=== PATIENT | female | born 1980 | race Caucasian/White ===

== ENCOUNTER 2020-02-23 11:07 | Emergency (ER) | payer MEDICAID, SELFPAY ==
[2020-02-23 11:17] VITALS: BMI 19.2
[2020-02-23 11:21] VITALS: BP 124/87; PULSE 66; RESP 14; TEMP 35.7; O2SAT 98
[2020-02-23] MEDS: HYDROcodone-acetaminophen 5-325 mg Tablet 1 TAB PO (11:34)
--- NOTE | 2020-02-23 11:39 | ED_ITS ---
HPI - General Adult General: Chief complaint: Dental/Oral Stated complaint: mouth pain Time Seen by Provider: 02/23/20 11:22 History of Present Illness: HPI narrative: Patient has a large sore in her lower gum that is been recently treated for Candidus infection that has not improved. Patient says she is in a lot of pain is not getting better and she like it looked at. MD complaint: Sore in the mouth. Onset (ago): week(s) Location: mouth Severity: moderate Severity scale (1-10): 5 Quality: aching Pain Consistency: constant Relieving factors: none Associated symptoms: Reports no associated symptoms; Deny chest pain, dyspnea, headache(s), nausea, rash or vomiting Review of Systems Const: Denies: fever(s), chills or body aches Eyes: Denies: change in vision or blurry vision ENMT: Reports: other (Patient does wear dentures and she has an area in her mouth that is white and has an open sore that is not improved with medication recently prescribed by the urgent care clinic); Denies: throat pain or nasal congestion Card: Denies: chest pain or dyspnea on exertion Resp: Denies: dyspnea, productive cough or non-productive cough GI: Denies: abdominal pain, nausea or vomiting Musc: Denies: extremity pain Skin/Breast: Denies: rash Neuro: Denies: headache(s) Psych: Denies: anxiety or depression Castro/Lymph: Denies: easy bruising PFS ED PFSH: Social History (Updated 02/12/20 @ 12:10 by Jing Phillips LPN) Smoking and tobacco status: current every day smoker Female Reproductive History: Date of last menstrual period: 02/09/20 Physical Exam Const: COMMON NORMALS: no acute distress, average body habitus and patient oriented x3 HENMT: COMMON NORMALS: normocephalic HEAD & SCALP: normal to inspection and normocephalic FACE & SINUS: normal facial exam MOUTH: other (Patient has a lower gum to the center midline on the left and open areas almost looks like a clamshell for lack of better description that has white plaques inside of it and little necrotic tissue toward the back does not appear to be inflamed is tender to the touch has no drainage presently no significant lymphadenopathy noted anterior cervical) Eye: COMMON NORMALS: conjunctivae normal GENERAL EYE: appearance normal, both eyes and all related structures CONJUNCTIVA: Yes conjunctivae normal Neck/C-Spine: COMMON NORMALS: no JVD Chest: COMMONS NORMALS: normal inspection of the chest Resp: COMMON NORMALS: normal respiratory effort and clear to auscultation bilaterally AUSCULTATION: clear to auscultation bilaterally Cardio: COMMON NORMALS: no JVD Extremity: COMMON NORMALS: normal to inspection and full ROM Neuro: COMMON NORMALS: patient oriented x3 Course Vital Signs: Vital signs: Vital Signs Temperature 96.2 F L 02/23/20 11:21 Pulse Rate 66 02/23/20 11:21 Respiratory Rate 14 02/23/20 11:21 Blood Pressure 124/87 02/23/20 11:21 Pulse Oximetry 98 02/23/20 11:21 MDM - General Adult MDM Narrative: Medical decision making narrative: Spoke with Almaz at Dr. Newton's office to set up an appointment for 0 850 in the morning Discharge Plan Discharge Patient Disposition: Home Clinical Impression: Ulcer of gingiva Condition: Stable Prescriptions: New hydrocodone-acetaminophen 5-325 mg tablet 1 tab PO Q6H PRN (Reason: pain) Qty: 7 RF: 0 No Action nystatin 100,000 unit/mL suspension 6 ml PO QID 7 Days Qty: 168 RF: 0 Discharge Orders: Discharge Order (Routine); Ordered 02/23/20 Ordered By: Rush Katz Discharge Diet: Advance as tolerated Discharge Activity: Resume usual activity Activity Restrictions/Additional Instructions: Follow-up with Dr. Newton's office at 0 850 in the morning take medicine as prescribed continue nystatin Coding Level of Care Code ED Integrated Pest Management Technician for Chg Fwd Exam Comprehensive
[2020-02-23 11:49] VITALS: BP 126/88; PULSE 72; RESP 14; O2SAT 96
== END 2020-02-23 11:49 | disposition home or self-care (01) ==
PROVIDERS: Emergency Provider Nurse Practitioner Family
DX: K06.8 Other specified disorders of gingiva and edentulous alveolar ridge (principal); F17.210 Nicotine dependence, cigarettes, uncomplicated
CPT/HCPCS: 12345; 99281; 99283

== ENCOUNTER 2020-02-24 10:38 | Outpatient (CLI) | payer MEDICAID, SELFPAY ==
--- NOTE | 2020-02-24 10:46 | CT_ITS ---
WS: [id number] CT scan of the neck. Additional two-dimensional coronal and sagittal reconstruction was performed. Clinical Data: LOCALIZED SWELLING , MASS AND LUMP, NECK Comparison: None. DLP: 1738.[address] scans at [facility] use at least one of these dose optimization techniques: automat ed exposure control; mA and/or kV adjustment per patient size (includes targeted exams where dose is matched to clinical indication); or iterative reconstruction. Findings: No lymphadenopathy is noted. The salivary glands are unremarkable. There is no prevertebral soft tiss ue swelling. The larynx is symmetric. The thyroid gland shows normal enhancement. The floor of the mo uth and parapharyngeal spaces are normal. The salivary glands show no abnormalities The oral cavity i s unremarkable. The carotid arteries bifurcate normally. The cervical spine is unremarkable. The lung apices show no abnormalities. No erosion of the skull or skull base is seen. CT/CT neck w con* [id number] Impression: Negative CT scan of the neck.
[2020-02-24] MEDS: iohexol 300 mg/mL 100 mL Btl IV (11:49)
== END 2020-02-24 10:39 | disposition home or self-care (01) ==
LOC: RADWPI 10:42
PROVIDERS: Visit Provider Specialist
DX: R22.1 Localized swelling, mass and lump, neck (principal)
CPT/HCPCS: 70491; Q9967

== ENCOUNTER 2020-04-17 12:59 | Outpatient (CLI) | payer OTHER, MEDICAID, SELFPAY ==
--- NOTE | 2020-04-17 16:35 | ONC CON_ITS ---
Dr. Vilchis New Patient Note Patient: Tiffanie Juárez Unit #: [id number]: 1980 Dicatated By: Anna Marie Vilchis M.D.Date of Visit: Apr 17, 2020 Onc MED New Patient/Consult Referring Physician: Dr. Adrian Arteaga M.D. History of Present Illness: Ms. Tiffanie Juárez, is a 39-year-old female with a longstanding history of smoking e.g. more than 25 years recently noted sore in her mouth, it was painful causing problem with swallowing because of pain but denies any melena or hematochezia hemoptysis or hematemesis, denies any bleeding from mouth or history of infection in her mouth or gum., Patient was referred to ENT Dr. 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 And CT PET scan was ordered which was done on March 25, 2020 which showed increased activity in the floor of mouth otherwise negative for local and distant metastatic disease. Patient was referred to ENT in [place], as per patient radical neck dissection is under consideration and scheduled for May 10, 2020 and patient is also scheduled to see plastic surgery on April 26, 2020. Patient is complaining of discomfort around her gumline and problem with swallowing due to floor of the mouth lesion and taken hydrocodone, which is helping her some. Otherwise denies any fever or chills, denies any weight loss, denies any voice changes. Patient smoke about pack a day, and drinks occasionally. Past Medical History: Ms. Juárez's medical history is unremarkable. Past Surgical History: Ms. Juárez's surgical history is unremarkable. Medications: Flora 1 Tablet (of 5-325 mg) Oral q 6 hours PRN, Turmeric 1 Capsule Oral daily Allergies: No Known Allergies. Social History: Ms. Juárez is . She is a daily smoker who has smoked 1.0 pack/day for 26 years. She has no history of drinking. She has indicated exposure to the following products: cigarettes. Family History: pt states she doesn't know any family medical history. Review Of Symptoms: Review of Systems is not available for this patient. Vital Signs: Performed on Apr 17, 2020 16:02: 69.00 in, 143.6 lbs, 98.6 F, 68, 20, 116/63 mm(hg), 96 %, 10, Performed on Apr 17, 2020 16:02: 21.206 kg/m2, and Performed on Apr 17, 2020 13:47: 1.79 sq.m. Performance Status: 0 - Fully active, able to carry on all predisease activities without restrictions. (ECOG) Physical Examination: ENMT - No thrush and there is a large ulcerated lesion of the left floor of the mouth extending from midline posteriorly, Respiratory - Lungs are clear to auscultation, Cardiovascular - Regular rate and rhythm of heart, Abdomen - Soft, bowel sounds present, Extremities - No visible edema. Lab/Imaging: Most recent lab results are not available for this patient. Impression: Well-differentiated squamous cell carcinoma extending to the base and lateral edges per left floor of the mouth lesion biopsy done on February 24, 2020 CT PET scan done on March 25, 2020 showed floor of the mouth activity and is negative for local or distant metastatic disease. History of' heavy smoking, still active Plan: Discussed with patient regarding his disease status and treatment options, patient is being considered for radical neck dissection and reconstruction as per patient she is scheduled for radical neck dissection on May 10, 2020 and she is also seen plastic surgery on April 26, 2020, patient was advised that standard of care for localized lesion is surgery and if postop pathology report shows lymph node involvement with extranodal extension or positive surgical margins, those patients are usually recommended adjuvant radiation therapy plus minus chemo. Patient will see radiation oncology today and then she was wished good luck for radical neck dissection and then return to clinic 2 weeks after surgery for evaluation. Patient was advised to quit smoking and was offered any assistance she may need. And she was also advised to maintain good oral hygiene and continue with her pain medication on as-needed basis. Signed By: Anna Marie Vilchis M.D. <<Signature on File>>
--- NOTE | 2020-04-20 12:45 | N.ONRAD NP_ITS ---
Radiation Oncology New Patient Visit Patient: Tiffanie Juárez MR#: [id number] : 1980 Age: 39 Sex: Female Dictated by: Dr. Alex Pelayo Date of Service: 04/17/2020 Referring Physician(s) : Dr. Adrian Arteaga Diagnosis: Two oral cavity primaries, both staged as [id number], one in the left floor of mouth and the other in the left alveolus. Chief Complaint / History 1 located in the left floor of mouth Present Illness: The patient is a 39-year-old female with a 98-[id number]-imsw history of smoking (currently smoking) and an edentulous oral cavity who noted an oral cavity sore which impaired her ability to wear dentures in November 2019. The patient procrastinated seeking medical evaluation, and upon ultimately seeking medical evaluation, a left floor of mouth biopsy ([facility] 02/24/2020) revealed well differentiated invasive squamous cell carcinoma. The patient was then referred by Dr. Arteaga to Dr. Quezada. A subsequent PET/CT (03/25/2020) revealed FDG avidity within the anterior left floor of mouth, but there was no submental, submandibular, or jugulodigastric lymph nodes present to suggest local lymph node spread. The patient is planned to undergo surgical resection to consist of composite resection of floor of mouth, tongue and marginal mandibulectomy, bilateral modified radical neck dissection, tracheostomy, percutaneous endoscopic gastrostomy tube placement, and reconstruction consisting of a radial forearm free flap. The patient is seen in consultation today, and aside from the irritation in her oral cavity, the patient has no complaints. Current Medications: [place], turmeric. Allergies: No Known Allergies Medical History: No history of collagen vascular disease. No previous radiation therapy. Family History: pt states she doesn't know any family medical history Social History: Last screened on 04/17/2020 - Current every day smoker 1.0 pack/day for 26 years (26 pack years). Last screened on 04/05/2020 - Never drank. Patient indicated use of the following products: cigarettes. Current Complaints / Review of Systems: Constitutional - Complains of mild fatigue. Denies lack of appetite, fever, night sweats, rigors / chills and change in weight. Eyes - Denies blurred vision and double vision. ENMT - Complains of ear pain on the left side occasionally. Complains of mild mouth dryness. Complains of stomatitis. Denies altered taste. Having stinging pain on the left lower jaw with eating. Neck - Complains of swelling of the neck. Denies neck pain and decreased range of motion. Integumentary - Denies rash. Breasts - Denies pain. Cardiovascular - Denies arrhythmias, chest pain and edema. Respiratory - Complains of cough. Complains of chronic dyspnea. Denies hemoptysis, hiccoughs and wheezing. Gastrointestinal - Denies abdominal pain, constipation, diarrhea, heartburn / dyspepsia, nausea and vomiting. Genitourinary (F) - Denies dysuria, frequency, urgency, vaginal discharge / bleeding and vaginal spotting. Musculoskeletal - Denies joint pain and muscle weakness. Neurologic - Denies dizziness, abnormal gait and headaches. Endocrine - Denies diabetes and thyroid disease. Hematologic/Lymphatic - Complains of tender or enlarged lymph nodes on the left side of the neck.. Vital Signs: Performed on 04/17/2020 1:47 PM Height - 69.00 in, Weight - 143.6 lbs (high), BSA - 1.79 sq.m, BMI - 21.21, Temperature - 98.6 f, Pulse - 68 /min, Respiration - 20 /min, O2 Sat - 96 %, Pain - 8 and BP - 116/ 63 mm(hg)(/low). Physical Exam: GENERAL:??? The patient is alert, and in no acute distress. HEENT:??? Head is normocephalic. Face is symmetric. External ocular movements are intact. Sclera and conjunctivae are non erythematous. NECK:??? Trachea is midline.??? Thyroid is not enlarged by palpation.??? LYMPH NODES:??? There is no cervical or supraclavicular adenopathy bilaterally. However, the patient does have a palpable swollen left submandibular gland. LUNGS:??? Clear to auscultation bilaterally. Respiratory movement is unlabored. HEART:??? Regular rate and rhythm. EXTREMITIES:??? No deformities. NEUROLOGIC:??? Gait and station are normal.??? The patient is well coordinated and strength is equal bilaterally. STAFFING RECRUITER:??? Cranial nerves II-XII are intact and without focal deficits.??? Psych: Affect is normal. Skin: Cursory review of the skin reveals no obvious lesions concerning for malignancy. Oral Cavity: There is an ulcerated lesion measuring approximately 2 x 1 cm predominantly centered in the right floor of mouth involving the right sublingual fold, lingual frenulum, ventral aspect of the midline tongue (right greater than left), with 0.5 cm involvement of the left sublingual fold. The left submandibular duct appears to be occluded/involved. In addition, there is an abutting exophytic lesion measuring approximately 3 x 2 cm in the left anterior mandibular alveolus. The patient's oral cavity is edentulous Imaging: See HPI -personally reviewed by me. Impression: The patient is a 39-year-old female with two oral cavity primaries, both staged as [id number], one in the left floor of mouth and the other in the left alveolus. The patient is scheduled to undergo composite resection of floor of mouth, tongue and marginal mandibulectomy, bilateral modified radical neck dissection, tracheostomy, percutaneous endoscopic gastrostomy tube placement, and reconstruction consisting of a radial forearm free flap. It was explained to the patient that she would most likely require postoperative radiation therapy plus or minus concurrent chemotherapy (if a postsurgical positive margin or extracapsular extension was noted on final pathology). A considerable amount time was spent discussing acute and late side effects associated with radiation therapy. Plan: The patient was recommended to follow with radiation oncology 2 weeks status post surgical resection for pathology review and final recommendations for or against adjuvant radiation therapy (60-66 Gy/30-33fx), +/- concurrent chemotherapy as deemed appropriate after pathologic review. Signed by: 04/20/2020 12:44:02 PM <<Signature on File>> Time spent with patient: CPT Code: CPT Code:
== END 2020-04-17 13:00 | disposition home or self-care (01) ==
LOC: ONCMED 13:04
PROVIDERS: Absent Provider Radiology Radiation Oncology; PCP Family Medicine Adult Medicine; Referring Provider Specialist; Visit Provider Internal Medicine Hematology & Oncology
DX: C04.8 Malignant neoplasm of overlapping sites of floor of mouth (principal); F17.210 Nicotine dependence, cigarettes, uncomplicated; G89.3 Neoplasm related pain (acute) (chronic); Z79.891 Long term (current) use of opiate analgesic
CPT/HCPCS: 99203; 99215

== ENCOUNTER 2020-05-21 07:00 | Emergency (ER) | payer OTHER, MEDICAID, SELFPAY ==
[2020-05-21 07:08] VITALS: BP 127/73; PULSE 84; RESP 16; TEMP 36.8; O2SAT 96; BMI 21.4
--- NOTE | 2020-05-21 07:28 | ED_ITS ---
HPI - General Adult General: Chief complaint: General Medical Stated complaint: throat pain due to post surgery Time Seen by Provider: 05/21/20 07:11 History of Present Illness: HPI narrative: 39-year-old female patient presents to the emergency department with neck pain, redness, swelling that started yesterday. 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 Neck dissection with skin grafting completed 05/10/2020 at [facility] by Dr. Kirby - reports redness swelling with increased pain around the surgical incisions anterior neck, reports some swelling around the trach site. Denies change of drainage from the trach area. Denies fever chills, denies nausea vomiting. Reports contacted her surgeon who advised her to come to the emergency department for evaluation. Onset (ago): day(s) (1) Location: neck Severity: moderate Quality: aching and dull Pain Consistency: intermittent Relieving factors: none Exacerbating factors: none Associated symptoms: Reports malaise; Deny chest pain, dyspnea, headache(s), nausea, rash, palpitations or vomiting Treatments prior to arrival: none Review of Systems General: Reports: 10 or more systems reviewed and unremarkable except in HPI and below Const: Reports: fatigue and malaise; Denies: fever(s) or chills Eyes: Denies: blurry vision or eye redness ENMT: Reports: mouth pain, swelling of lips/tongue and oral sores; Denies: throat pain, dental pain or disequilibrium Card: Denies: chest pain, palpitations, irregular heart rhythm or swelling of feet/ankles Resp: Reports: productive cough (to trach site); Denies: dyspnea, non-productive cough or wheezing GI: Denies: abdominal pain, nausea or vomiting : Denies: difficulty voiding or dysuria Musc: Denies: neck pain, back pain or joint pain Skin/Breast: Reports: erythema (anterior neck surrounding incision sites) and skin tenderness; Denies: rash or pruritus Neuro: Denies: headache(s), weakness in extremities or behavioral changes Psych: Reports: anxiety and depression (r/t recent cancer diagnosis) Castro/Lymph: Denies: easy bruising PFSH ED PFSH: Medical History (Updated 05/21/20 @ 10:07 by ARELI Self) Squamous cell carcinoma of oral cavity Social History (Updated 04/11/20 @ 10:11 by KIEL Montero Smoking and tobacco status: current every day smoker cigarettes Packs smoked per day: 0.5 Second hand smoke exposure: Yes Alcohol intake: current Alcohol intake frequency: holidays/special occasions only Female Reproductive History: Date of last menstrual period: 05/08/20 Physical Exam Const: COMMON NORMALS: no acute distress, patient oriented x3, alert and well nourished GENERAL APPEARANCE: cooperative, comfortable, well kempt and well hydrated NUTRITIONAL APPEARANCE: thin ORIENTATION/CONSCIOUSNESS: Yes awake, Yes oriented to person, Yes oriented to place and Yes oriented to time HENMT: COMMON NORMALS: normocephalic, atraumatic, EAC's normal, Normal external nose present, Normal nasal mucous membranes and turbinates present and moist oral mucous membranes HEAD & SCALP: normal to inspection, normocephalic and atraumatic FACE & SINUS: sinuses nontender NOSE: Normal external nose present and Normal nasal mucous membranes and turbinates present EXTERNAL AUDITORY CANAL: EAC's normal MOUTH: mouth trauma (from recent surgery), Abnormal oral and palatal mucosa present and tongue abnormal (pale discoloration, tongue immobile, reports tacked to floor of mouth) Eye: COMMON NORMALS: Equal, round and reactive pupils present and EOMs intact bilaterally GENERAL EYE: appearance normal, both eyes and all related structures PUPIL: Yes Equal, round and reactive pupils present Neck/C-Spine: COMMON NORMALS: full ROM and no lymphadenopathy GENERAL: Yes normal visual inspection, Yes trachea midline, Yes anterior neck swelling (with erythema and edema, submental) and Yes tracheostomy present (with purulent sputum with cough, no erythema to surrounding skin) CERVICAL SPINE: Yes cervical ROM normal and No Cervical spine tenderness Lymph: LYMPHATIC: no lymphadenopathy noted Chest: COMMONS NORMALS: normal inspection of the chest and normal palpation of entire chest wall Resp: COMMON NORMALS: normal respiratory effort and clear to auscultation bilaterally EFFORT & INSPECTION: Yes able to speak in complete sentences AUSCULTATION: clear to auscultation bilaterally Cardio: COMMON NORMALS: regular rhythm, S1 normal heart sound present, S2 normal heart sound present and Peripheral pulses 2+ throughout RHYTHM: regular rhythm HEART SOUNDS: S1 normal heart sound present and S2 normal heart sound present PERIPHERAL PULSES: Peripheral pulses 2+ throughout GI: COMMON NORMALS: Normal to inspection, nondistended, normoactive bowel sounds present, Soft to palpation and non-tender INSPECTION: Yes normal to inspection and Yes other (PEG to LUQ, no erythema/ecchymosis) PALPATION: Yes Soft to palpation : COMMON NORMALS: Yes no CVA tenderness BLADDER/KIDNEY EXAM: Yes no CVA tenderness Back/Pelvis: COMMON NORMALS: no CVA tenderness, thoracic and lumbar spine normal to inspection and no thoracic nor lumbar tenderness Extremity: COMMON NORMALS: normal to inspection and capillary refill normal Neuro: COMMON NORMALS: patient oriented x3 and no focal motor deficits SENSORIUM/ORIENTATION: Yes alert, Yes oriented to person, Yes oriented to place and Yes oriented to time Psych: COMMON NORMALS: mental status grossly normal, Normal thought process present and cooperative APPEARANCE: Yes well kempt ACTIVITY/MOTOR BEHAVIOR: Yes appropriate eye contact THOUGHT PROCESS: Normal thought process present Skin: COMMON NORMALS: no rashes or lesions noted and turgor normal GENERAL SKIN EXAM: no rashes or lesions noted and turgor normal LESIONS: no lesions RASHES: no rashes WOUNDS: Yes surgical site Details: size (large, anterior, rt and left anterior neck, horizontal incision, surrounding erythema and ecchymosis noted.), drainage (None), margins (Approximated) and sutures (Intact) OTHER: Surgical incision to the left forearm, clean dry and intact without erythema, negative ecchymosis Course ED course: 39-year-old female patient presents to the emergency department status post neck dissection with skin grafting due to squamous cell carcinoma 05/10/2020 at [facility] by Dr. Kirby, ENT; she presents with concerning findings of increased redness and swelling surrounding the incision site of the anterior neck. White blood count negative for leukocytosis, CT scan of the neck revealed 6 cm loculated fluid collection in the right anterior neck with enhancing rim/consistent with questionable abscess cavity. Discussion with Dr. Kirby after films were purged to [facility]. Advised no need for antibiotics at this time, will reevaluate patient in the morning at 10 AM in his office. Discussion with the patient concerning my conversation as well as findings of CT scan and serology here in the ED. Questions were answered, concerns were discussed, agrees for follow-up tomorrow as recommended. Advised to return the emergency department if she develops worsening concerning symptoms. She verbalized understanding and agrees. Consultations: Consultation #1: Dr Kirby, ENT at [place], [place], CHRISTINA Cano ENT -CT scans were purged to [facility] with review by Dr. Kirby, reports no emergent findings at this time to transfer patient to [facility]. Advised to follow-up with patient tomorrow at 10 AM in his office. Serology results discussed from today's findings. Negative leukocytosis, negative fever chills. Discussion of Zosyn administered IV here in the ED, advised no p.o. antibiotics at this time as infection may not be evident without fever or leukocytosis. I discussed with Dr. Kirby my concern of erythema to the neck, negative drainage appreciated. Reports will wait till tomorrow to determine antibiotic coverage. Vital Signs: Vital signs: Vital Signs Temperature 98.2 F 05/21/20 07:08 Pulse Rate 78 05/21/20 10:18 Respiratory Rate 18 05/21/20 10:18 Blood Pressure 107/56 05/21/20 10:18 Pulse Oximetry 94 05/21/20 10:18 MDM - General Adult Lab Data: Labs: Lab Results 05/21/20 05/21/20 05/21/20 Range/Units 07:55 07:55 08:35 WBC Cancelled Corrected WBC Cancelled RBC Cancelled Hgb Cancelled Hct Cancelled MCV Cancelled MCH Cancelled MCHC Cancelled RDW Cancelled Plt Count Cancelled MPV Cancelled Gran % Cancelled Neut % (Auto) Cancelled Lymph % (Auto) Cancelled [place] % (Auto) Cancelled Eos % (Auto) Cancelled Baso % (Auto) Cancelled Neut # (Auto) Cancelled Lymph # (Auto) Cancelled [place] # (Auto) Cancelled Eos # (Auto) Cancelled Baso # (Auto) Cancelled Absolute Gran (aut o) Cancelled Nucleated RBC % (a uto) Cancelled Nucleated RBCs # Cancelled Sodium Cancelled 135 L Potassium Cancelled 4.2 Chloride Cancelled 100 Carbon Dioxide Cancelled 27 Anion Gap Cancelled 12.2 BUN Cancelled 15 Creatinine Cancelled 0.4 L GFR Calculation Cancelled 177.7 H Glucose Cancelled 88 Calculated Osmolal ity Cancelled 280 L Calcium Cancelled 8.5 Total Bilirubin Cancelled 0.2 AST Cancelled 14 ALT Cancelled 13 Alkaline Phosphata se Cancelled 68 Total Protein Cancelled 6.2 L Albumin Cancelled 3.1 L Globulin Cancelled 3.1 05/21/20 Range/Units 08:35 WBC 8.6 Corrected WBC RBC 4.10 Hgb 12.6 Hct 39.1 MCV 95.4 MCH 30.7 MCHC 32.2 RDW 11.9 L Plt Count 465 H MPV 9.5 Gran % Neut % (Auto) 59.4 Lymph % (Auto) 20.9 [place] % (Auto) 12.3 Eos % (Auto) 5.6 Baso % (Auto) 1.2 Neut # (Auto) 5.12 Lymph # (Auto) 1.8 [place] # (Auto) 1.1 H Eos # (Auto) 0.5 Baso # (Auto) 0.1 Absolute Gran (aut o) Nucleated RBC % (a uto) 0 Nucleated RBCs # 0.0 Sodium Potassium Chloride Carbon Dioxide Anion Gap BUN Creatinine GFR Calculation Glucose Calculated Osmolal ity Calcium Total Bilirubin AST ALT Alkaline Phosphata se Total Protein Albumin Globulin Imaging Data^: CT Head: Radiologist's impression: [place] [address] CT Scan Report Signed Patient: Tiffanie Juárez Unit #: [id number] : 1980 Age/Sex: 39 / F ADM Date: 05/21/20 Loc: ER Room/Bed: Attending Dr: Ordering Provider/Ordering MD: Lisa Arevalo Date of Service: 05/21/20 Procedure(s): CT neck w con* [id number] Accession Number(s): [id number] Report Number: [id number] PROCEDURE INFORMATION: Exam: CT Neck With Contrast Exam date and time: 05/21/2020 7:40 AM Age: 39 years old Clinical indication: Pain and condition or disease; Throat; Neck pain; Prior surgery; Surgery date: <1 month; Surgery type: Mouth/neck for cancer; Additional info: Neck swelling, ? abscess, S/P trach/neck dissection TECHNIQUE: Imaging protocol: Computed tomography images of the neck with intravenous contrast. Radiation optimization: All CT scans at this facility use at least one of these dose optimization techniques: automated exposure control; mA and/or kV adjustment per patient size (includes targeted exams where dose is matched to clinical indication); or iterative reconstruction. Contrast material: OMNIPAQUE 300; Contrast volume: 95 ml; Contrast route: INTRAVENOUS (IV); COMPARISON: CT neck w con* [id number] 02/24/2020 11:37 AM RADIATION DOSE METRICS: Total DLP (mGy-cm): 593.06 FINDINGS: Paranasal sinuses: There is mild mucosal thickening in the sphenoid sinus. Nasopharynx: Unremarkable. Oropharynx: Unremarkable. No significant tonsillar enlargement. Hypopharynx: Unremarkable. Larynx: Unremarkable. Normal epiglottis. Retropharyngeal space: Unremarkable. Submandibular/Parotid glands: Normal. Glands are normal in size. Thyroid: The thyroid gland is unremarkable.. Lymph nodes: Unremarkable. No lymphadenopathy. Trachea: A tracheostomy is present. There is no constriction of the airway. Lungs: Unremarkable as visualized. Bones/joints: Unremarkable. No acute fracture. Soft tissues: The patient has undergone extensive neck surgery with numerous clips especially on the right side. There is diffuse subcutaneous edema bilaterally extending from the level of the mandible down to the level of the thyroid gland. This is more prominent on the right side. This may be due to a extensive cellulitis. There are multiple bubbles of subcutaneous air especially on the right side and in the submandibular region. There is a 6 cm loculated fluid collection that extends from the inferior aspect of the mandible down along the right side of the anterior neck anterior to the right sternocleidomastoid muscle. This has an enhancing rim and contains a few bubbles of air. This may represent abscess cavity. CT/CT neck w con* [id number] IMPRESSION: 1. The patient has undergone recent extensive neck surgery specially on the right side. 2. Diffuse subcutaneous edema predominantly on the right side consistent with a cellulitis. 3. There is a 6 cm loculated fluid collection in the right anterior neck with enhancing rim and containing a few bubbles of air which is consistent with an abscess cavity. Radiation Dose CTDIVOL = (mGy): DLP = 593.06 (mGy-cm) Dictated By: Stevan Schulte Signed By: Stevan Schulte Signed Date/Time: 05/21/20836 DD/ 5 Discharge Plan Discharge Patient Disposition: Home Clinical Impression: Pain at surgical incision, Abscess, neck Condition: Stable Prescriptions: No Action Docu 50 mg/5 mL liquid 10 ml PO BID RF: 0 hydrocodone-acetaminophen 5-325 mg Tablet 1 tab PO Q6H PRN (Reason: Pain) RF: 0 famotidine 20 mg tablet 20 mg feeding tube BID RF: 0 lidocaine HCl 4 % Solution 10 ml Transtracheal QID RF: 0 Discharge Orders: Discharge Order (Routine); Ordered 05/21/20 Ordered By: Lisa Arevalo Referrals: Alex Ca MD [Primary Care Provider] - Discharge Diet: Usual diet and Resume prior tube feeds Discharge Activity: Limit activity as instructed Patient Instructions: Surgical Site Infections (ED), Abscess (ED) Activity Restrictions/Additional Instructions: Follow-up with Dr. Kirby tomorrow at 10 AM without fail, decision regarding antibiotic therapy will be discussed at that time. Return to the emergency department if you develop difficulty breathing, fever, chills, drainage from the surgical incision Continue therapy and care as per discharge instructions from surgery Continue pain medication as directed by Dr. 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
[2020-05-21] MEDS: iohexol 300 mg/mL 100 mL Btl IV (08:03)
[2020-05-21 08:07] VITALS: RESP 18; O2SAT 98
[2020-05-21] MEDS: morphine 4 mg/mL SDV 1 mL IVP ×2 (08:07→08:54)
[2020-05-21] MEDS: ondansetron 2 mg/ML SDV 2 mL 4 MG IVP (08:07)
[2020-05-21] MEDS: piperacillin-tazobactam 3.375 GM in sodium chloride 0.9% (plus) 50 ML IV (08:52)
[2020-05-21 08:54] VITALS: RESP 18; O2SAT 96
[2020-05-21] MEDS: sodium chloride 0.9% 1,000 ML 125 ML IV (08:54)
[2020-05-21 09:21] LABS: Alanine Aminotransferase 13 U/L (0-33); Albumin Level 3.1 g/dL (3.5-5.2); Alkaline Phosphatase 68 IU/L (35-105); Anion Gap 12.2 (5-19); Aspartate Amino Transferase 14 U/L (0-32); Blood Urea Nitrogen 15 mg/dL (6-20); Calcium 8.5 mg/dL (8.5-10.5); Carbon Dioxide 27 mmol/L (22-29); Chloride 100 mmol/L (98-107); Globulin 3.1 g/dL (1.3-4.6); Glomerular Filtration Rate 177.7 mL/min (90-130); Glucose 88 mg/dL (65-115); Osmolality Calculated 280 mOsm/kg (285-295); Potassium 4.2 mmol/L (3.5-5.1); Sodium 135 mmol/L (136-145); Total Bilirubin 0.2 mg/dL (0.15-1.2); Total Protein 6.2 g/dL (6.6-8.7)
[2020-05-21 09:22] LABS: Basophils # 0.1 10^3/uL (0.0-0.1); Basophils % 1.2 %; Eosinophils # 0.5 10^3/uL (0.0-0.8); Eosinophils % 5.6 %; Hematocrit 39.1 % (37.0-47.0); Hemoglobin 12.6 g/dL (11.5-15.3); Lymphocytes # 1.8 10^3/uL (0.8-4.8); Lymphocytes % 20.9 %; Mean Corpuscular HGB Conc 32.2 g/dL (30.0-36.0); Mean Corpuscular Hemoglobin 30.7 pg (28.0-34.0); Mean Corpuscular Volume 95.4 fL (81-99); Mean Platelet Volume 9.5 fL (7.4-10.4); Monocytes # 1.1 10^3/uL (0.2-0.9); Monocytes % 12.3 %; Neutrophils # 5.12 10^3/uL (1.8-7.7); Neutrophils % 59.4 %; Nucleated Red Blood Cells % 0 %; Platelet Count 465 10^3/cmm (130-400); Red Cell Distribution Width 11.9 % (12.1-15.1); White Blood Count 8.6 10^3/uL (4.0-10.0)
[2020-05-21 10:18] VITALS: BP 107/56; PULSE 78; RESP 18; O2SAT 94
[2020-05-21] MEDS: HYDROcodone-APAP 7.5-325 mg/15 mL UDC PO (10:23)
== END 2020-05-21 10:23 | disposition home or self-care (01) ==
PROVIDERS: Emergency Provider Nurse Practitioner Family; PCP Family Medicine Adult Medicine
DX: L02.11 Cutaneous abscess of neck (principal); T81.89XA Other complications of procedures, not elsewhere classified, initial encounter; F17.210 Nicotine dependence, cigarettes, uncomplicated
CPT/HCPCS: 12345; 70491; 80053; 85025; 87040; 96365; 96375; 96376; 99282; 99283; J2270; J2405; J2543; J7030; Q9967

== ENCOUNTER 2020-06-21 14:23 | Outpatient (CLI) | payer OTHER, MEDICAID, SELFPAY ==
[2020-06-21 15:23] LABS: Basophils # 0.1 10^3/uL (0.0-0.1); Basophils % 0.7 %; Eosinophils # 0.3 10^3/uL (0.0-0.8); Hematocrit 39.1 % (37.0-47.0); Hemoglobin 12.6 g/dL (11.5-15.3); Lymphocytes # 2.9 10^3/uL (0.8-4.8); Lymphocytes % 33.2 %; Mean Corpuscular HGB Conc 32.2 g/dL (30.0-36.0); Mean Corpuscular Hemoglobin 29.9 pg (28.0-34.0); Mean Corpuscular Volume 92.9 fL (81-99); Mean Platelet Volume 9.7 fL (7.4-10.4); Monocytes # 0.9 10^3/uL (0.2-0.9); Monocytes % 9.9 %; Neutrophils # 4.46 10^3/uL (1.8-7.7); Nucleated Red Blood Cells % 0 %; Platelet Count 293 10^3/cmm (130-400); Red Blood Count 4.21 10^6/uL (4.1-5.3); Red Cell Distribution Width 12.6 % (12.1-15.1); White Blood Count 8.6 10^3/uL (4.0-10.0)
[2020-06-21 15:53] LABS: Alanine Aminotransferase 10 U/L (0-33); Albumin Level 3.7 g/dL (3.5-5.2); Alkaline Phosphatase 79 IU/L (35-105); Anion Gap 13.7 (5-19); Aspartate Amino Transferase 11 U/L (0-32); Blood Urea Nitrogen 9 mg/dL (6-20); Carbon Dioxide 28 mmol/L (22-29); Chloride 101 mmol/L (98-107); Globulin 2.7 g/dL (1.3-4.6); Glomerular Filtration Rate 111.3 mL/min (90-130); Glucose 76 mg/dL (65-115); Osmolality Calculated 285 mOsm/kg (285-295); Potassium 3.7 mmol/L (3.5-5.1); Sodium 139 mmol/L (136-145); Total Bilirubin 0.2 mg/dL (0.15-1.2); Total Protein 6.4 g/dL (6.6-8.7)
--- NOTE | 2020-06-23 00:44 | ONC FU_ITS ---
Dr. Vilchis follow up note Patient: Tiffanie Juárez Unit #: [id number]: 1980 Dicatated By: Anna Marie Vilchis M.D.Date of Visit:Jun 21, 2020 Onc Med Follow-up/Prog Note History of Present Illness: Ms. Tiffanie Juárez, is a 39-year-old female with a longstanding history of smoking e.g. more than 25 years recently noted sore in her mouth, it was painful causing problem with swallowing because of pain but denies any melena or hematochezia hemoptysis or hematemesis, denies any bleeding from mouth or history of infection in her mouth or gum., Patient was referred to ENT Dr. 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 And CT PET scan was ordered which was done on March 25, 2020 which showed increased activity in the floor of mouth otherwise negative for local and distant metastatic disease. Patient was referred to ENT in [place], as per patient radical neck dissection is under consideration and May 10, 2020 she underwent composite resection of oral cavity [id number] of the mouth, tongue, mandible and modified radical neck dissection level 1 through 4 bilateral, tracheostomy, thyroid isthmusectomy and PEG placement final pathology report came back multiple tumor site e.g. 2, measuring 2.7 cm and 1.1 cm with clear surgical margins and total 59 lymph nodes were examined showed no evidence of metastatic disease, no lymphovascular invasion seen, primary tumor was T2, her case was discussed in tumor board at [facility] in [place] on May 19, 2020 and the recommendations was postsurgical close observation, no adjuvant therapy. Came for follow-up, complaining of discomfort in her neck but improving/recovering from radical neck dissection otherwise denies any hemoptysis or hematemesis denies any fever chills denies any discharge from surgical wound site. Medications: Delmita 1 Tablet (of 5-325 mg) Oral q 6 hours PRN Allergies: No Known Allergies. Review of Systems: Constitutional - Appetite is good and weight is stable. No fever, night sweats, or hot flashes. Energy is, ENMT - No sinus congestion/drainage. No mouth sores. Positve for sore throat and difficulty swallowin r/t swallowing, Hematologic/Lymphatic - No abnormal bruising or bleeding, Respiratory - No shortness of breath. No cough. No pleuritic pain or hemoptysis, Cardiovascular - No angina pain. No palpitations, Gastrointestinal - No nausea or vomiting. No heartburn or acid reflux. No diarrhea or constipation. No blood in the stool or black stools, Genitourinary (F) - No dysuria or hematuria. No urinary frequency. No urgency or incontinence, Musculoskeletal - No joint or bone pain, Integumentary - , Neurologic - No headache or dizziness. No numbness or tingling. No other focal neurologic symptoms, Psychiatric - No anxiety or depression. No insomnia. Vital Signs: Performed on Jun 21, 2020 15:47 Height - 69.00 in Weight - 136 lbs (LOW) BSA - 1.75 sq.m BMI - 20.08 Temperature - 97.4 F (LOW) Pulse - 79 /min Respiration - 18 /min BP - 113/68 mm(hg) O2 Sat - 100 % Pain - 0 Performance Status: 1 - No physically strenuous activity, but ambulatory and able to carry out light or sedentary work (e.g. office work, light house work). (ECOG) Physical Examination: ENMT - No mouth sores, postsurgical changes seen in the mouth and in the neck, Respiratory - Lungs are clear to auscultation, Cardiovascular - Regular rate and rhythm of heart, Abdomen - Soft, bowel sounds present, Extremities - No visible edema. Lab/Imaging: Test performed on Jun 21, 2020 14:40 WBC 8.6 10 3/uL RBC 4.21 10 6/uL HGB 12.6 g/dL HCT 39.1 % MCV 92.9 fL MCH 29.9 pg MCHC 32.2 g/dL RDW 12.6 % Platelet Count 293 10 3/cmm MPV 9.7 fL Neutrophils 4.46 10 3/uL Lymphocytes 2.9 10 3/uL Monocytes 0.9 10 3/uL Eosinophils 0.3 10 3/uL Basophils 0.1 10 3/uL Neutrophil % 52.0 % Lymphocyte % 33.2 % Monocyte % 9.9 % Eosinophil % 4.0 % Basophils % 0.7 % NRBC % 0 % Impression: Well-differentiated squamous cell carcinoma extending to the base and lateral edges per left floor of the mouth lesion biopsy done on February 24, 2020-4 Subsequently underwent modified radical neck dissection level 1 bilaterally, composite resection of oral cavity cancer floor of the mouth, tongue, mandible, tracheostomy, PEG tube, thyroid isthmusectomy on May 10, 2020 final pathology report confirmed 2 separate foci of squamous cell carcinoma measuring 2.7 and 1.1 cm no lymphovascular invasion, no perineural invasion clear surgical margins 0 out of 59 lymph nodes shows metastatic disease, final stage was pT2 N0 MX, case was discussed in tumor board at [facility] on May 19, 2020 and the recommendations no adjuvant therapy, observation alone. CT PET scan done on March 25, 2020 showed floor of the mouth activity and is negative for local or distant metastatic disease. History of' heavy smoking, still active Plan: Discussed with patient regarding labs white blood count 8.6 hemoglobin 12.6 hematocrit 39.1 platelets 293,000 and her disease status and treatment options, patient recently underwent modified radical neck dissection and final pathology report showed 2 foci 0f invasive squamous cell carcinoma measuring 2.7 cm and 1.1 cm separately and 59 lymph nodes were examined ,were negative for metastatic disease, her case was discussed in tumor board at [facility] in [place] and the recommendations was no further treatment rather observation now being followed by Dr. Quezada in [place] and Dr. Arteaga in [place]. As patient is recovering from surgery well and now being followed ENT on regular basis, we will see her on as-needed basis. Signed By: Anna Marie Vilchis M.D. <<Signature on File>>
== END 2020-06-21 14:24 | disposition home or self-care (01) ==
LOC: ONCMED 14:27
PROVIDERS: PCP Family Medicine Adult Medicine; Visit Provider Internal Medicine Hematology & Oncology
DX: C04.8 Malignant neoplasm of overlapping sites of floor of mouth (principal); K13.79 Other lesions of oral mucosa; F17.210 Nicotine dependence, cigarettes, uncomplicated
CPT/HCPCS: 80053; 85025; G0463

== ENCOUNTER 2021-03-16 09:41 | Emergency (ER) | payer BC, MEDICAID, SELFPAY ==
--- NOTE | 2021-03-16 10:31 | ECG_ITS ---
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
--- NOTE | 2021-03-16 10:31 | XR_ITS ---
WS: [id number] Portable AP upright chest, 03/16/2021 Clinical Data: dyspnea/cough Comparison: None. Findings: No nodules, masses or effusions are seen. The heart is normal. The pulmonary vascularity is not increased. No pneumonia or pneumothorax is seen. The diaphragms are flattened. XR/XR chest 1V portable [id number] Impression: Hyperinflation.
[2021-03-16 10:46] VITALS: BP 122/77; PULSE 66; RESP 16; TEMP 36.9; O2SAT 97; BMI 20.7
--- NOTE | 2021-03-16 11:46 | PC.NURSE ---
Assumed care of patient at this time.
[2021-03-16 11:49] VITALS: BP 123/92; PULSE 63; RESP 16; TEMP 36.9; O2SAT 98
[2021-03-16 12:03] VITALS: BP 122/74; PULSE 62; RESP 16; O2SAT 96
--- NOTE | 2021-03-16 12:13 | W.ED.CHESTPA ---
HPI - Chest Pain General: Chief Complaint: Chest Pain Stated Complaint: cp Time Seen by Provider: 03/16/21 09:42 History of Present Illness: HPI narrative: 40-year-old female presents emergency room complaining intermittent chest pain for the last month or more. Intermittently she will get chest pain under the left breast is not reproducible with deep inspiration or with palpation it does not radiate anywhere. She is not had any nausea or vomiting no palpitations no shortness of breath. 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 Patient is a smoker. She has known known history of diabetes or heart disease or hypertension. Symptoms are very irregular that it will come for short period of time and then resolve with time she seen in the emergency room she has no chest pain whatsoever. MD complaint: chest pain Pertinent past history: coronary artery disease Onset (ago): hour(s) Timing of current episode: episodic Prior episodes: Yes Onset: during rest and during exertion Pain location: left chest Pain radiation: none Severity: mild Quality: sharp Relieving factors: nothing Exacerbating factors: nothing Associated symptoms: Deny abdominal pain, diaphoresis, dyspnea, fever(s), leg edema, nausea, palpitations, sense of impending doom, syncope or vomiting Treatment prior to arrival: none Review of Systems Const: Denies: fever(s) or diaphoresis ENMT: Denies: throat pain, ear or mastoid pain, nasal discharge or nasal congestion Card: Denies: palpitations or syncope Resp: Denies: dyspnea GI: Denies: abdominal pain, nausea or vomiting : Denies: flank pain, difficulty voiding, dysuria, urinary frequency or urinary urgency Skin/Breast: Denies: rash or pruritus PFS ED PFSH: Medical History Mouth 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 Strain of back Social History Smoking and tobacco status: current every day smoker cigarettes Packs smoked per day: 0.5 Second hand smoke exposure: Yes Alcohol intake: current Alcohol intake frequency: holidays/special occasions only Female Reproductive History: Date of last menstrual period: 05/08/20 Physical Exam Const: COMMON NORMALS: no acute distress GENERAL APPEARANCE: cooperative and comfortable ORIENTATION/CONSCIOUSNESS: Yes awake, Yes oriented to person, Yes oriented to place and Yes oriented to time HENMT: COMMON NORMALS: normocephalic, atraumatic, hearing grossly normal bilaterally, external ears normal, EAC's normal, TM's normal bilaterally, Normal nasal mucous membranes and turbinates present, moist oral mucous membranes and oropharynx normal HEAD & SCALP: normocephalic and atraumatic NOSE: Normal nasal mucous membranes and turbinates present EXTERNAL EAR: Yes external ears normal EXTERNAL AUDITORY CANAL: EAC's normal TYMPANIC MEMBRANE: TM's normal bilaterally Eye: COMMON NORMALS: Equal, round and reactive pupils present, EOMs intact bilaterally, conjunctivae normal and no scleral icterus CONJUNCTIVA: Yes conjunctivae normal PUPIL: Yes Equal, round and reactive pupils present Neck/C-Spine: COMMON NORMALS: full ROM, no lymphadenopathy, supple and no JVD Lymph: LYMPHATIC: no lymphadenopathy noted and no lymphedema noted Resp: COMMON NORMALS: normal respiratory effort, No retractions, No use of accessory muscles and clear to auscultation bilaterally AUSCULTATION: clear to auscultation bilaterally Cardio: COMMON NORMALS: no JVD, regular rate, regular rhythm and No murmurs present (Cardio) RATE: regular rate RHYTHM: regular rhythm GI: COMMON NORMALS: Soft to palpation and No hepatosplenomegaly present AUSCULTATION: Yes normoactive bowel sounds PALPATION: Yes Soft to palpation, No Tenderness to palpation present (GI), No Guarding due to palpation present (GI) and Yes No hepatosplenomegaly present Extremity: COMMON NORMALS: normal to inspection, capillary refill normal, no clubbing, cyanosis or edema, no calf tenderness and no pedal edema Neuro: SENSORIUM/ORIENTATION: Yes oriented to person, Yes oriented to place and Yes oriented to time Skin: COMMON NORMALS: no rashes or lesions noted GENERAL SKIN EXAM: no rashes or lesions noted Course Vital Signs: Vital signs: Vital Signs Temperature 97.7 F 03/16/21 16:08 Pulse Rate 60 03/16/21 16:08 Respiratory Rate 16 03/16/21 16:08 Blood Pressure 125/91 03/16/21 16:08 Pulse Oximetry 98 03/16/21 16:08 MDM - Chest Pain MDM Narrative: Medical decision making narrative: Reviewed labs and imaging on the chart. No acute findings. Chest pain is atypical in nature and is reproducible with motion and palpation. We will discharge her home can use oral analgesics [id number] and return if has further problems Lab Data: Labs: Lab Results 03/16/21 03/16/21 03/16/21 Range/Units 11:59 11:59 11:59 WBC 7.8 (4.0-10.0) 10^3/ uL RBC 4.98 (4.1-5.3) 10^6/u L Hgb 15.7 H (11.5-15.3) g/dL Hct 47.5 H (37.0-47.0) % MCV 95.4 (81-99) fl MCH 31.5 (28.0-34.0) pg MCHC 33.1 (30.0-36.0) g/dL RDW 12.4 (12.1-15.1) % Plt Count 210 (130-400) 10^3/c mm MPV 9.2 (7.4-10.4) fL Neut % (Auto) 59.3 % Lymph % (Auto) 30.0 % [place] % (Auto) 7.1 % Eos % (Auto) 2.3 % Baso % (Auto) 1.0 % Neut # (Auto) 4.65 (1.8-7.7) 10^3/u L Lymph # (Auto) 2.4 (0.8-4.8) 10^3/u L Karnes # (Auto) 0.6 (0.2-0.9) 10^3/u L Eos # (Auto) 0.2 (0.0-0.8) 10^3/u L Baso # (Auto) 0.1 (0.0-0.1) 10^3/u L Nucleated RBC % (a uto) 0 % Nucleated RBCs # 0.0 /100WBC Sodium 140 (136-145) mmol/L Potassium 4.2 (3.5-5.1) mmol/L Chloride 102 (98-107) mmol/L Carbon Dioxide 27 (22-29) mmol/L Anion Gap 15.2 (5-19) BUN 7 (6-20) mg/dL Creatinine 0.4 L (0.5-0.9) mg/dL GFR Calculation 176.8 H (90-130) mL/min Glucose 69 (65-115) mg/dL Calculated Osmolal ity 286 (285-295) mOsm/k g Calcium 8.8 (8.5-10.5) mg/dL Total Bilirubin 0.3 (0.15-1.2) mg/dL AST 35 H (0-32) U/L ALT 23 (0-33) U/L Alkaline Phosphata se 53 (35-105) IU/L Troponin T Baselin e 6 (0-10) ng/L Troponin T 120 Min [place] (0-10) ng/L Delta Troponin T (0-10) ABS# Total Protein 6.7 (6.6-8.7) g/dL Albumin 4.3 (3.5-5.2) g/dL Globulin 2.4 (1.3-4.6) g/dL 03/16/21 Range/Units 14:54 WBC (4.0-10.0) 10^3/ uL RBC (4.1-5.3) 10^6/u L Hgb (11.5-15.3) g/dL Hct (37.0-47.0) % MCV (81-99) fl MCH (28.0-34.0) pg MCHC (30.0-36.0) g/dL RDW (12.1-15.1) % Plt Count (130-400) 10^3/c mm MPV (7.4-10.4) fL Neut % (Auto) % Lymph % (Auto) % [place] % (Auto) % Eos % (Auto) % Baso % (Auto) % Neut # (Auto) (1.8-7.7) 10^3/u L Lymph # (Auto) (0.8-4.8) 10^3/u L [place] # (Auto) (0.2-0.9) 10^3/u L Eos # (Auto) (0.0-0.8) 10^3/u L Baso # (Auto) (0.0-0.1) 10^3/u L Nucleated RBC % (a uto) % Nucleated RBCs # /100WBC Sodium (136-145) mmol/L Potassium (3.5-5.1) mmol/L Chloride (98-107) mmol/L Carbon Dioxide (22-29) mmol/L Anion Gap (5-19) BUN (6-20) mg/dL Creatinine (0.5-0.9) mg/dL GFR Calculation (90-130) mL/min Glucose (65-115) mg/dL Calculated Osmolal ity (285-295) mOsm/k g Calcium (8.5-10.5) mg/dL Total Bilirubin (0.15-1.2) mg/dL AST (0-32) U/L ALT (0-33) U/L Alkaline Phosphata se (35-105) IU/L Troponin T Baselin e (0-10) ng/L Troponin T 120 Min [place] 6.00 (0-10) ng/L Delta Troponin T 0 (0-10) ABS# Total Protein (6.6-8.7) g/dL Albumin (3.5-5.2) g/dL Globulin (1.3-4.6) g/dL Discharge Plan Discharge Patient Disposition: Home Clinical Impression: Atypical chest pain, Chest wall muscle strain Condition: Stable Prescriptions: No Action No Known Home Medications RF: 0 Discharge Orders: Discharge ED (Routine); Ordered 03/16/21 Ordered By: Patrick Wilson Discharge Diet: Usual diet Discharge Activity: Increase activity as tolerated Patient Instructions: Opioid Safety Activity Restrictions/Additional Instructions: Return if you have further problems. Coding Level of Care Code ED Cage Operator for Iris Fwd Exam Comprehensive
[2021-03-16 12:14] LABS: Basophils # 0.1 10^3/uL (0.0-0.1); Eosinophils # 0.2 10^3/uL (0.0-0.8); Eosinophils % 2.3 %; Hematocrit 47.5 % (37.0-47.0); Hemoglobin 15.7 g/dL (11.5-15.3); Lymphocytes # 2.4 10^3/uL (0.8-4.8); Mean Corpuscular HGB Conc 33.1 g/dL (30.0-36.0); Mean Corpuscular Hemoglobin 31.5 pg (28.0-34.0); Mean Corpuscular Volume 95.4 fl (81-99); Mean Platelet Volume 9.2 fL (7.4-10.4); Monocytes # 0.6 10^3/uL (0.2-0.9); Monocytes % 7.1 %; Neutrophils # 4.65 10^3/uL (1.8-7.7); Neutrophils % 59.3 %; Nucleated Red Blood Cells % 0 %; Platelet Count 210 10^3/cmm (130-400); Red Blood Count 4.98 10^6/uL (4.1-5.3); Red Cell Distribution Width 12.4 % (12.1-15.1); White Blood Count 7.8 10^3/uL (4.0-10.0)
--- NOTE | 2021-03-16 12:31 | ECG_ITS ---
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
[2021-03-16 12:34] LABS: Troponin(5th) Baseline 6 ng/L (0-10)
[2021-03-16 12:35] LABS: Alanine Aminotransferase 23 U/L (0-33); Albumin Level 4.3 g/dL (3.5-5.2); Alkaline Phosphatase 53 IU/L (35-105); Anion Gap 15.2 (5-19); Aspartate Amino Transferase 35 U/L (0-32); Blood Urea Nitrogen 7 mg/dL (6-20); Calcium 8.8 mg/dL (8.5-10.5); Carbon Dioxide 27 mmol/L (22-29); Chloride 102 mmol/L (98-107); Globulin 2.4 g/dL (1.3-4.6); Glomerular Filtration Rate 176.8 mL/min (90-130); Glucose 69 mg/dL (65-115); Osmolality Calculated 286 mOsm/kg (285-295); Potassium 4.2 mmol/L (3.5-5.1); Sodium 140 mmol/L (136-145); Total Bilirubin 0.3 mg/dL (0.15-1.2); Total Protein 6.7 g/dL (6.6-8.7)
[2021-03-16 14:29] VITALS: BP 123/70; PULSE 56; RESP 16; TEMP 36.5; O2SAT 99
[2021-03-16 16:08] VITALS: BP 125/91; PULSE 60; RESP 16; TEMP 36.5; O2SAT 98
[2021-03-16 16:42] LABS: Troponin 5 2HR Delta 0 ABS# (0-10)
== END 2021-03-16 16:11 | disposition home or self-care (01) ==
PROVIDERS: Emergency Provider Family Medicine
DX: R07.89 Other chest pain (principal); S29.011A Strain of muscle and tendon of front wall of thorax, initial encounter; Z85.89 Personal history of malignant neoplasm of other organs and systems; F17.210 Nicotine dependence, cigarettes, uncomplicated; X58.XXXA Exposure to other specified factors, initial encounter
CPT/HCPCS: 36415; 71045; 80053; 84484; 85025; 93005; 99283

== ENCOUNTER 2025-05-04 08:33 | Oncology outpatient (recurring) (ONCR) | payer SELFPAY ==
[2025-05-04 10:18] LABS: Hematocrit 45.7 % (36-47); Hemoglobin 15.10 g/dL (11.27-16.99); Mean Corpuscular HGB Conc 33.0 g/dL (30-55); Mean Corpuscular Hemoglobin 31.7 pg (27-33); Mean Corpuscular Volume 95.8 fl (85-98); Nucleated Red Blood Cells % 0 %; Platelet Count 247 10^3/cmm (157-399); Red Blood Count 4.77 10^6/uL (3.85-5.65); White Blood Count 13.09 10^3/uL (3.29-11.43)
[2025-05-04 10:35] LABS: Alanine Aminotransferase 56 U/L (0-33); Albumin Level 4.1 g/dL (3.5-5.2); Alkaline Phosphatase 74 U/L (35-105); Anion Gap 19.3 (5-19); Aspartate Amino Transferase 82 U/L (0-32); Blood Urea Nitrogen 4 mg/dL (6-20); Calcium 9.1 mg/dL (8.5-10.5); Carbon Dioxide 23 mmol/L (22-29); Chloride 105 mmol/L (98-107); Creatinine Clr Calc Pharmacy 186.0525; Globulin 3.3 g/dL (1.3-4.6); Glucose 88 mg/dL (65-115); Magnesium 1.9 mg/dL (1.7-2.3); Osmolality Calculated 292 mOsm/kg (285-295); Potassium 4.3 mmol/L (3.5-5.1); Sodium 143 mmol/L (136-145); Total Protein 7.4 g/dL (6.6-8.7)
--- NOTE | 2025-05-04 10:46 | ONCRAD EPV_ITS ---
Radiation Oncology Established Patient Visit Patient: Tiffanie Juárez [id number] : 1980> Age: 44> Sex: Female> Dictated by: Kunal Stewart DO/JUDIT/SALBADOR Date of Service: 05/04/2025 Referring Physician(s) : Dr. 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 STAGE: [id number] (PET/CT) ICD-10: C32.1, C77.0, C04.8 Radiotherapy to Date: NONE Current History: Patient complains of dysphagia since approximately 04/07/2025. Recent biopsy positive for keratinizing MD-SCC of the EPIGLOTTIS/VALLECULA/BOT. This is a pleasant but emotional 44-year-old female being seen for SCC of the supraglottic areas with extension into the BOT. 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 Serial CTs have been negative until recently. CT STN on 03/25/2025 noted remote postsurgical changes from bilateral neck dissection with numerous surgical clips a loss of normal tissue planes. No prior exams available for review. No mass collection or suspicious adenopathy. BX on 04/19/2025 noted keratinizing MD-SCC of the epiglottis/vallecula. STRIKER OFF scope suggest epiglottic tumor involvement with extension into the BOT. PET/CT on 04/28/2025 shows abnormal soft tissue thickening involving the epiglottis with hypermetabolic activity (11.1). There is a small right cervical lymph node which measures 0.6 cm (2.87). There is an additional small focus of uptake in the left neck with suspected tiny lymph node (4.4). No definite hypermetabolic disease in the chest abdomen or pelvis. Current Medications: albuterol sulfate 90 mcg/actuation (ProAir HFA) INHALE TWO PUFFS EVERY 6 HOURS NEEDED FOR SHORTNESS OF BREATH OR WHEEZINGalbuterol sulfate 2.5 mg (3 mL) inhalation Q4H PRNascorbic acid (vitamin C) 1,000 mg PO DAILYazithromycin For 250 mg dose pack: take 500 mg today (day 1), then 250 mg for 4 days (days 2-5) PObenzonatate 200 mg PO BID PRNprednisone 60 mg (3 x 20 mg) PO DAILY 5 daystocophersolan (vitamin E TPGS) units PO DAILY Allergies: No Known Allergies Current Complaints / Review of Systems: . Vital Signs: Performed on 05/04/2025 8:37 AM BMI - 21.118 kg/m2, Height - 69 in, Weight - 143 lbs, Temperature - 98.1 f, Pulse - 88 /min, Respiration - 16 /min, O2 Sat - 94 % (low), Pain - 2, Fatigue - 0 and BP - 108/ 71 mm(hg). Physical Exam: General: Alert and oriented x 3. No acute distress. EMOTIONAL HEENT: Normocephalic, atraumatic. Extraocular Movements Intact: Pupils Equal, Round, Reactive to Light and Accommodation: Sclerae anicteric. Oral cavity is clear without lesions, masses or ulcers on manual exam. STRIKER OFF scope dictation suggest epiglottic disease extending into the vallecula and BOT. Patient is tongue-tied suggestive of intrinsic muscle involvement. NECK: Supple without supraclavicular or jugular lymphadenopathy. PET+ DISEASE HOWEVER LUNGS: Clear to auscultation bilaterally without rales, rhonchi or wheeze. HEART: Regular rate and rhythm, normal S1 and S2 without murmur, gallop or rub. MUSCULOSKELETAL: No tenderness or percussion pain over the axial skeleton, scapulae or pelvis. ABDOMEN: Soft, nontender, nondistended without masses or organomegaly. Bowell sounds are present. EXTREMITIES: No peripheral edema is identified. Limited motor and sensory examination are grossly intact and symmetric bilaterally. NEUROLOGIC: Cranial nerves II ???XII are grossly intact. Normal sensation, strength 5/5 in all extremities, normal gait, no ataxia. Performance Status: KPS 80 Lab: Pending. Pathology: Primary, c77.0 - secondary and unspecified malignant neoplasm of lymph nodes of head, face and neck, Diagnosed 04/28/2025 (active) , Primary, c32.1 - malignant neoplasm of supraglottis, Diagnosed 04/19/2025 (active) and Primary, c04.8 - malignant neoplasm of overlapping sites of floor of mouth, Diagnosed 04/17/2020 (active) . 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 STAGE: [id number] (PET/CT) ICD-10: C32.1, C77.0, C04.8 PLAN: Options were discussed with the patient and friend. Questions answered to their satisfaction. Recommend combined chemoradiation therapy to a new H/N primary. Port and PEG placement date pending. CT simulation with PET/CT fusion after port/PEG placement. CT SIM with upper dentures removed. Patient to remove upper dentures during XRT fractions. PLAN 7000cGy / 35 FX???S Signed by: 05/04/2025 10:44:55 AM <<Signature on File>> Time spent with patient/FAMILY MEMBER/REVIEW RECORDS/DOCUMENT PREP: 75 MINUTES CPT Code: CPT Code:
== END 2025-05-13 23:59 | disposition home or self-care (01) ==
LOC: ONCMED 08:34
PROVIDERS: Visit Provider Internal Medicine
DX: C06.9 Malignant neoplasm of mouth, unspecified (principal)
CPT/HCPCS: 36415; 80053; 83615; 83735; 84100; 85025

== ENCOUNTER 2025-05-25 08:44 | Day surgery (SDC) | payer SELFPAY ==
--- NOTE | 2025-05-23 09:54 | ANES.PREANE2 ---
Pre-Anesthetic Assessment Height/Weight: Height 1.75 m Operation Date: 05/25/25 12:50 Proposed Procedures p Port a Cath Insertion 15603 Z85.810(Not Applicable) - Kevin Johnson MD Familial anesthetic complications: None Social No alcohol and No tobacco Exam alert, oriented x 3, clear to auscultation bilaterally and regular rate & rhythm Airway Comments: Comments: CT scan from March 2025 shows no gross abnormalities of aerodigestive tract to include pharynx and larynx. Patient has no difficulty with breathing and feeling like she has something in her throat or as if her airway is closing off. Doesn't feel her symptoms have worsened since March. Anesthetic Plan ASA status: 3 Anesthesia: MAC Risk of > 500 ml blood loss (7ml/kg in children): No Other Pertinent Information Patient counseled on possiblity of higher risk of airway trauma, discussed remote possible need for invasive or surgical airway. Also informed patient, anesthesia would be kept minimal to encourage spontaneous respirations. Patient educated on risk of intraop awareness. All questions answered. Medications/Allergies Home Medications ?Medication ?Instructions ?Recorded ?Confirmed ?Last Taken ?Type albuterol sulfate 2.5 mg/3 mL 2.5 mg (3 mL) inhalation Q4H PRN 01/27/23 05/23/25 05/23/25 Rx (0.083 %) solution for nebulization shortness of breath or wheezing #180 mL ascorbic acid (vitamin C) 1,000 mg 1,000 mg PO DAILY 05/04/25 05/23/25 05/23/25 History capsule tocophersolan (vitamin E TPGS) 75 75 unit PO DAILY 05/04/25 05/23/25 05/23/25 History unit/mL oral drops (Aqua-E Concentrate) albuterol sulfate 90 mcg/actuation 90 mcg inhalation TID 05/23/25 05/23/25 05/23/25 History aerosol inhaler Allergies Allergy/AdvReac Type Severity Reaction Status Date / Time No Known Allergies Allergy Verified 05/04/25 08:43 [facility] Anesthesia Medical History (Updated 05/04/25 @ 09:45 by Toñito Shaw MD) Asthma Mouth cancer Strain of back Squamous cell carcinoma of oral cavity Social History Smoking and tobacco/nicotine status: current every day tobacco/nicotine user cigarettes Packs smoked per day: 0.5 Second hand smoke exposure: Yes Alcohol intake: current Alcohol intake frequency: holidays/special occasions only Substance/Drug Use: never
[2025-05-25] VITALS (11 sets, daily range): BP systolic 120–137; BP diastolic 70–94; PULSE 75–95; RESP 16–18; TEMP 36.3–37.6; O2SAT 94–99; BMI 21.1
--- NOTE | 2025-05-25 09:20 | SC_ITS ---
WS: [id number] Exam: C-arm FL for CVA [id number] Date/Time of Exam: 05/25/2025 9:20 AM Reason For Exam: Port-A-Cath insertion DLP: Single AP C-arm image of the upper RIGHT chest is submitted. The image depicts a central line entering from the RIGHT subclavian approach and appearing to end in the expected region of the lower one third of the SVC. An additional metallic lead overlies the medial LEFT chest. Significance is undetermined. This image was obtained for intraoperative visualization purposes only.
--- NOTE | 2025-05-25 09:52 | P.HPUD_ITS ---
Surgery/Procedure H&P Update DATE OF PROCEDURE: May 25, 2025 DATE H&P PERFORMED: 05/11/25 H&P UPDATE INFORMATION: I have reviewed H&P completed within last 30 days, I have examined patient prior to procedure, No changes to prior documentation and Risks and benefits of the procedure reviewed CHANGES TO PREVIOUS DOCUMENTATION: I had an extensive discussion with the patient and answered all questions. I have discussed non operative/non procedural options and the patient still decides to proceed. Discussed risks and benefits of Port-A-Cath insertion and patient decides to proceed. Patient understands the risks include bleeding, inf ection, catheter dislodgment, arterial injury and possible stroke, and patient agrees to proceed. PLANNED PROCEDURE: Operation Date: 05/25/25 10:55 Proposed Procedures p Port a Cath Insertion [id number] Z85.810(Not Applicable) - Kevin Johnson MD
--- NOTE | 2025-05-25 09:57 | ANES.PAUD2 ---
Pre-Anesthetic Update Pre-Anesthetic Assessment: Date of Surgery/Procedure: 05/25/25 Proposed Procedure: Operation Date: 05/25/25 10:55 Proposed Procedures p Port a Cath Insertion [id number] Z85.810(Not Applicable) - Kevin Johnson MD Any changes to Pre-Anesthetic Assessment?: No Last Intake: Intake Last Liquid Date 05/24/25 Last Liquid Time 19:00 Last Solid Date 05/24/25 Last Solid Time 18:00 Labs Last 48hrs: . 8hrs Vitals: Temperature 97.4 F L 05/25/25 09:54 Temperature Source Temporal Artery S can 05/25/25 09:54 Pulse Rate 92 05/25/25 09:54 Respiratory Rate 18 05/25/25 09:54 Blood Pressure 133/94 05/25/25 09:54 Blood Pressure Elizabeth n 107 05/25/25 09:54 Pulse Oximetry 96 05/25/25 09:54 Oxygen Delivery Me thod Room Air 05/25/25 09:54 Exam: Pre-Anes Outpt Exam: alert, oriented x 3, clear to auscultation bilaterally and regular rate & rhythm
[2025-05-25] MEDS: ceFAZolin 2,000 mg SDV 2000 MG IVP (10:15)
[2025-05-25] MEDS: BUPivacaine 0.25% INJ 10 mL INJECTION (10:47)
[2025-05-25] MEDS: lidocaine-epi 1% 20 mL INJ 10 ML INJECTION (10:47)
[2025-05-25] MEDS: heparin, porcine 1,000 unit/mL INJ 10 mL 6000 UNIT IRRIGATION (10:48)
--- NOTE | 2025-05-25 10:52 | P.OP_ITS ---
Operative Report Date of procedure: May 25, 2025 Pre-op diagnosis: Oropharyngeal carcinoma Post-op diagnosis: same Post-op findings: Tip of catheter at atriocaval junction confirmed with intraoperative fluoroscopy Procedure done: Port-A-Cath insertion Implants: Port-A-Cath Specimens removed/disposition: N/A Pathology: none sent Pathology: N/A Surgeon: Kevin Johnson MD Professor Of Graphic Design: N/A Anesthesia: MAC Estimated blood loss (mL): 10 Complications: N/A Findings: Tip of catheter at atriocaval junction confirmed with intraoperative fluoroscopy Condition: stable Disposition: same day Brief History: 44-year-old female who presented for Port-A-Cath insertion. Discussed risk benefits and patient agreed to proceed with Port-A-Cath insertion. Procedure: Patient was brought into the operating room and a timeout was carried out. Procedure was done under MAC. Patient was placed supine with the arms tucked and in Trendelenburg. Patient was prepped and draped in the usual sterile fashion. Using ultrasound guidance the right internal jugular vein was accessed. A guidewire was then placed down to the atriocaval junction using fluoroscopy. The finder needle was removed and the guidewire was secured. I then turned my attention to creating a pocket over the right chest. Make sure to locally infiltrated using plain lidocaine and bupivacaine at the site of the pocket and throughout the tunnel site. I confirmed adequate hemostasis at the pocket. I then proceeded to place the port that was already preassembled and flushed with heparinized saline and the chest pocket. I tunneled the catheter from the chest to the neck at the site where I accessed the internal jugular vein. I measured and adjusted the length of the catheter so it would reach the atrial caval junction. At this point, I used a dilator to dilate the tract into the internal jugular vein using fluoroscopy. I removed the guidewire and proceeded to thread the central venous catheter through the introducer. In the process, I removed the sheath as a completely pushed the catheter into the internal jugular vein. I then confirmed adequate placement of the catheter by performing intraoperative interpretation of fluoroscopy. The tip of the catheter was confirmed to be placed in the atriocaval junction. There were no kinks noted throughout the trajectory of the catheter. I then proceeded to test the port and was satisfied with its functionality. I proceeded to flushed the catheter without any issues. I then hep-locked the port. Skin was closed using deep dermal 3-0 Vicryl, subcuticular 4-0 Monocryl, and Dermabond. Patient was then transferred to PACU without any complications.
[2025-05-25] MEDS: fentaNYL 50 mcg/mL INJ 2mL IVP (12:01)
--- NOTE | 2025-05-25 12:04 | SUR.PHASEII ---
12:00 MEDICATED FOR PAIN. BREATH SOUNDS PRESENT BILATERALLY. PT DENIES DYSPNEA.
--- NOTE | 2025-05-25 13:05 | ANE.PACU2 ---
Inpatient post-anesthesia follow up: Airway intact: Yes Vital signs: Temperature 98.8 F Pulse Rate 94 Respiratory Rate 16 Blood Pressure 124/83 Pulse Oximetry 96 Oxygen Delivery Me thod Room Air Oxygen Flow Rate Fraction of Inspir ed Oxygen Hydration adequate: Yes Nausea and vomiting: No Pain level: 1 Mental status: Baseline
== END 2025-05-25 13:05 | disposition home or self-care (01) ==
PROVIDERS: Visit Provider Student in an Organized Health Care Education/Training Program
PROC: (CPT 36561; principal; 2025-05-25 10:55)
DX: C10.8 Malignant neoplasm of overlapping sites of oropharynx (principal); J45.909 Unspecified asthma, uncomplicated; F17.210 Nicotine dependence, cigarettes, uncomplicated; Z85.819 Personal history of malignant neoplasm of unspecified site of lip, oral cavity, and pharynx
CPT/HCPCS: 36561; 76000; 77001; C1788; J0690; J1644; J2250; J2704; J3010; J3490; J7030; J9999

== ENCOUNTER 2025-06-08 07:30 | Oncology outpatient (recurring) (ONCR) | payer SELFPAY ==
[2025-06-01 07:46] LABS: Hematocrit 44.9 % (36-47); Hemoglobin 15.10 g/dL (11.27-16.99); Mean Corpuscular HGB Conc 33.6 g/dL (30-55); Mean Corpuscular Hemoglobin 32.3 pg (27-33); Mean Corpuscular Volume 96.1 fl (85-98); Nucleated Red Blood Cells % 0 %; Platelet Count 221 10^3/cmm (157-399); Red Blood Count 4.67 10^6/uL (3.85-5.65); White Blood Count 8.06 10^3/uL (3.29-11.43)
[2025-06-01] MEDS: magnesium sulfate premix 2 GM/50 ML PIGGYBACK IV (07:46)
[2025-06-01] MEDS: sodium chlor 0.9% + KCl 20 mEq 20 MEQ/1,000 ML BAG 500 MEQ IV (07:46)
[2025-06-01 08:05] LABS: Alanine Aminotransferase 34 U/L (0-33); Albumin Level 3.9 g/dL (3.5-5.2); Alkaline Phosphatase 70 U/L (35-105); Anion Gap 17.9 (5-19); Aspartate Amino Transferase 58 U/L (0-32); Blood Urea Nitrogen 3 mg/dL (6-20); Calcium 9.0 mg/dL (8.5-10.5); Carbon Dioxide 24 mmol/L (22-29); Chloride 100 mmol/L (98-107); Globulin 3.2 g/dL (1.3-4.6); Glucose 168 mg/dL (65-115); Magnesium 1.8 mg/dL (1.7-2.3); Osmolality Calculated 286 mOsm/kg (285-295); Potassium 3.9 mmol/L (3.5-5.1); Sodium 138 mmol/L (136-145); Total Protein 7.1 g/dL (6.6-8.7)
[2025-06-01] MEDS: diphenhydrAMINE 50 mg/mL SDV 1mL 25 MG IVP (10:23)
[2025-06-01 10:56] VITALS: BP 110/71; PULSE 71; RESP 17; TEMP 37.3; O2SAT 95
[2025-06-01] MEDS: FUROsemide 10 mg/mL SDV 2mL 20 MG IVP (12:13)
[2025-06-01 13:23] VITALS: BP 103/68; PULSE 79; RESP 17; TEMP 36.9; O2SAT 94
[2025-06-05 20:44] LABS: Vitamin B1 (Thiamine),Blood 104 nmol/L (78-185)
--- NOTE | 2025-06-07 11:53 | ONCRAD TMN_ITS ---
Radiation Oncology Weekly Treatment Management Patient: Franck Louise MR#: [id number] : 1980> Attending Physician: Patricio Stewart Date of Service: 06/07/2025 Referring Physician(s) : Dr. 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 ID: [id number], Energy: 6X, Dose/Fx (cGy): 200, #Fx: 4 / 35, Dose Correction (cGy): 0, Total Dose Delivered (cGy): 800, Start Date: 06/01/2025, Elapsed Days: 6 Reason for visit: The patient is being seen today as part of their regularly scheduled weekly on treatment visits to assess for acute toxicities from radiotherapy. Review of Systems: Patient has lost 2-1/2 pounds since last visit. She has not received her PEG tube which now is scheduled for June 13. She complains of dysphagia and we will order MMW. Vital Signs: Performed on 06/07/2025 11:20 AM BMI - 20.734 kg/m2, Height - 69 in, Weight - 140.4 lbs, Temperature - 97.9 f, Pulse - 97 /min, Respiration - 18 /min, O2 Sat - 97 %, Pain - 4, Fatigue - 0 and BP - 127/ 84 mm(hg). Physical Exam: AAOx3. Skin intact. Pain in treatment portal area. Imaging: Radiation therapy imaging related to accurate target localization (i.e. KV, MV and CBCT) was reviewed. Appropriate changes, if any, were made to ensure treatment accuracy. Plan: Continue XRT MMW from hospital pharmacy by 10 box. Feeding Tube placement June 13. Recommend approximately 2500 edilberto/day to include food and feeding tube use. Signed by: Patricio Stewart 06/07/2025 11:52:17 AM
[2025-06-08 07:45] LABS: Hematocrit 42.6 % (36-47); Hemoglobin 14.60 g/dL (11.27-16.99); Mean Corpuscular HGB Conc 34.3 g/dL (30-55); Mean Corpuscular Hemoglobin 32.5 pg (27-33); Mean Corpuscular Volume 94.9 fl (85-98); Nucleated Red Blood Cells % 0 %; Platelet Count 227 10^3/cmm (157-399); Red Blood Count 4.49 10^6/uL (3.85-5.65); White Blood Count 11.32 10^3/uL (3.29-11.43)
[2025-06-08 08:07] LABS: Alanine Aminotransferase 42 U/L (0-33); Albumin Level 3.8 g/dL (3.5-5.2); Alkaline Phosphatase 74 U/L (35-105); Anion Gap 16.3 (5-19); Aspartate Amino Transferase 55 U/L (0-32); Blood Urea Nitrogen 10 mg/dL (6-20); Calcium 9.5 mg/dL (8.5-10.5); Carbon Dioxide 28 mmol/L (22-29); Chloride 96 mmol/L (98-107); Globulin 3.0 g/dL (1.3-4.6); Glucose 71 mg/dL (65-115); Magnesium 1.7 mg/dL (1.7-2.3); Osmolality Calculated 280 mOsm/kg (285-295); Potassium 4.3 mmol/L (3.5-5.1); Sodium 136 mmol/L (136-145); Total Protein 6.8 g/dL (6.6-8.7)
[2025-06-08] MEDS: magnesium sulfate premix 2 GM/50 ML PIGGYBACK IV (08:59)
[2025-06-08] MEDS: sodium chlor 0.9% + KCl 20 mEq 20 MEQ/1,000 ML BAG 500 MEQ IV (09:00)
[2025-06-08] MEDS: diphenhydrAMINE 50 mg/mL SDV 1mL 25 MG IVP (10:11)
[2025-06-08] MEDS: FUROsemide 10 mg/mL SDV 2mL 20 MG IVP (12:28)
[2025-06-08 13:35] VITALS: BP 103/66; PULSE 71; RESP 17; TEMP 36.8; O2SAT 94
== END 2025-06-12 23:59 | disposition home or self-care (01) ==
PROVIDERS: Nurse Practitioner; Visit Provider Internal Medicine
DX: Z53.9 Procedure and treatment not carried out, unspecified reason; Z51.11 Encounter for antineoplastic chemotherapy; Z51.0 Encounter for antineoplastic radiation therapy; C32.1 Malignant neoplasm of supraglottis; C77.0 Secondary and unspecified malignant neoplasm of lymph nodes of head, face and neck; C04.8 Malignant neoplasm of overlapping sites of floor of mouth; Z79.630 Long term (current) use of alkylating agent; Z79.52 Long term (current) use of systemic steroids
CPT/HCPCS: 77300; 77301; 77334; 77336; 77338; 77386; 77470; 80053; 83615; 83735; 84100; 84425; 85025; 96367; 96368; 96375; 96413; J0185; J1100; J1200; J1938; J2469; J3475; J3480; J3490; J7040; J7050; J9060; J9999

== ENCOUNTER 2025-06-13 08:04 | Day surgery (SDC) | payer SELFPAY ==
[2025-06-13] VITALS (20 sets, daily range): BP systolic 106–156; BP diastolic 60–110; PULSE 60–102; RESP 13–22; TEMP 36.1–36.4; O2SAT 92–99; BMI 21.1
[2025-06-13 08:40] LABS: OR HCG Qualitative Urine Negative (Negative)
--- NOTE | 2025-06-13 08:48 | ANES.PREANE2 ---
Pre-Anesthetic Assessment Height/Weight: Height 1.75 m Weight 64.864 kg Temp Pulse Resp BP Pulse Ox O2 Del Method 97.6 F 81 16 119/64 99 Room Air 06/13/25 08:24 06/13/25 08:24 06/13/25 08:24 06/13/25 08:24 06/13/25 08:24 06/13/25 08:24 Operation Date: 06/13/25 09:30 Proposed Procedures p PEG Tube Insertion 12439 C06.9(Not Applicable) - Kevin Johnson MD Was Beta Nani taken within 24 hours: N/A Was Clonidine taken within 24 hours: N/A Last intake: Intake Last Liquid Date 06/13/25 Last Liquid Time 06:00 Last Solid Date 06/12/25 Last Solid Time 19:30 Social Tobacco and No alcohol Exam alert, oriented x 3, clear to auscultation bilaterally and regular rate & rhythm Airway Mallampati: Class II Dentition: full (Oral CA. Prior bilat radical neck surgerie(5 yrs ago). Prior healed trach. Trachea is midline. Good mouth opening) History/ROS No significant history except as noted and No significant complaints Pulmonary None reported CV/HEM None reported None reported Hepatic None reported GI None reported Metabolic None reported Musc/skel None reported Neuropsych Anxiety Anesthetic Plan ASA status: 3 Anesthesia: Anesthesia Evaluation and General Risk of > 500 ml blood loss (7ml/kg in children): No Medications/Allergies Home Medications ?Medication ?Instructions ?Recorded ?Confirmed ?Last Taken ?Type albuterol sulfate 2.5 mg/3 mL 2.5 mg (3 mL) inhalation Q4H PRN 01/27/23 06/10/25 05/24/25 Rx (0.083 %) solution for nebulization shortness of breath or wheezing #180 mL ascorbic acid (vitamin C) 1,000 mg 1,000 mg PO DAILY 05/04/25 06/10/25 06/05/25 History capsule tocophersolan (vitamin E TPGS) 75 75 unit PO DAILY 05/04/25 06/10/25 06/06/25 History unit/mL oral drops (Aqua-E Concentrate) albuterol sulfate 90 mcg/actuation 90 mcg inhalation TID 05/23/25 06/10/25 05/23/25 History aerosol inhaler lidocaine-prilocaine 2.5 %-2.5 % 1 applic topical .COMPLEX #30 grams 06/01/25 06/10/25 Unknown Rx topical cream ondansetron 4 mg disintegrating 4 mg PO Q6H PRN nausea and 06/01/25 06/10/25 Unknown Rx tablet vomiting 30 days #120 tabs prochlorperazine maleate 10 mg 10 mg PO Q6H PRN nausea and 06/01/25 06/10/25 Unknown Rx tablet (Compazine) vomiting 30 days #120 tabs lidocaine HCl 2 % mucosal solution 1 applic mucous membrane TID PRN 06/07/25 06/10/25 Unknown Rx (Lidocaine Viscous) pain #80 mL Allergies Allergy/AdvReac Type Severity Reaction Status Date / Time No Known Allergies Allergy Verified 06/13/25 08:23 [facility] Anesthesia Medical History Asthma Mouth cancer Strain of back Squamous cell carcinoma of oral cavity Social History Smoking and tobacco/nicotine status: current every day tobacco/nicotine user cigarettes Packs smoked per day: 0.5 Second hand smoke exposure: Yes Alcohol intake: current Alcohol intake frequency: holidays/special occasions only Substance/Drug Use: never
--- NOTE | 2025-06-13 08:57 | W.PM.OPSUD ---
Surgery/Procedure H&P Update DATE OF PROCEDURE: June 13, 2025 DATE H&P PERFORMED: 05/11/25 H&P UPDATE INFORMATION: I have reviewed H&P completed within last 30 days, I have examined patient prior to procedure, No changes to prior documentation and Risks and benefits of the procedure reviewed CHANGES TO PREVIOUS DOCUMENTATION: Proceed with PEG tube insertion. I had an extensive discussion with the patient and answered all questions. I have discussed non operative/non procedural options and the patient still decides to proceed. Discussed risks and benefits of PEG tube insertion and patient decides to proceed. Patient understands the risks include bleeding, infection, leaking around the tube, gastrocutaneous fistula, colonic injury, small bowel injury, colocutaneous fistula, enterocutaneous fistula, PEG tube dislodgment which is a surgical emergency in the for 6 weeks, PEG tube malfunction. Patient still decides to proceed. Patient understands that if there is no good window the procedure will be aborted. She also understands that she is at higher risk of airway complications. She understand that she may need to be intubated. PLANNED PROCEDURE: Operation Date: 06/13/25 09:30 Proposed Procedures p PEG Tube Insertion 13950 C06.9(Not Applicable) - Kevin Johnson MD
[2025-06-13] MEDS: fentaNYL 50 mcg/mL INJ 2mL IVP ×2 (10:10→10:35)
--- NOTE | 2025-06-13 10:50 | ANE.PACU2 ---
Inpatient post-anesthesia follow up: Airway intact: Yes Vital signs: Temperature 97.6 F Pulse Rate 68 Respiratory Rate 18 Blood Pressure 123/88 Pulse Oximetry 94 Oxygen Delivery Me thod Room Air Oxygen Flow Rate Fraction of Inspir ed Oxygen Hydration adequate: Yes Nausea and vomiting: No Pain level: 1 Mental status: Baseline
[2025-06-13] MEDS: oxyCODONE-APAP 5-325 mg Tablet 1 TAB PO (11:30)
--- NOTE | 2025-06-13 12:36 | SUR.PHASEII ---
Pt c/o considerable pain throughout post-op, this nurse informed anesthesia as well as Dr. Johnson, administered fentanyl 50 mcg was administered two times in phase one, pt voiced decreased pain. oxycodone 5mg PO was administered in phase 2 and this nurse placed a medium sized abdominal binder on pt, pt voiced decreased pain afterward rated 3/10.
--- NOTE | 2025-06-13 12:53 | SUR.PHASEII ---
Pt's mother picked up RX from [facility] pharmacy, returned to accompany us as pt was taken by wheelchair to cancer treatment center, upon discharge.
== END 2025-06-13 12:45 | disposition home or self-care (01) ==
PROVIDERS: Visit Provider Student in an Organized Health Care Education/Training Program
PROC: 0DH63UZ Insertion of Feeding Device into Stomach, Percutaneous Approach (ICD-10-PCS; CPT 43246; principal; 2025-06-13 09:30)
DX: C10.9 Malignant neoplasm of oropharynx, unspecified (principal); F41.9 Anxiety disorder, unspecified; Z85.819 Personal history of malignant neoplasm of unspecified site of lip, oral cavity, and pharynx; Z85.89 Personal history of malignant neoplasm of other organs and systems; F17.210 Nicotine dependence, cigarettes, uncomplicated
CPT/HCPCS: 43246; 81025; J0330; J1100; J2405; J2704; J3010; J7030; J9999

== ENCOUNTER 2025-06-27 10:44 | Oncology outpatient (recurring) (ONCR) | payer SELFPAY ==
--- NOTE | 2025-06-14 13:14 | ONCRAD TMN_ITS ---
Radiation Oncology Weekly Treatment Management Patient: Tiffanie Juárez MR#: [id number] : 1980 Attending Physician: Dr. Ro Malave Date of Service: 06/14/2025 Referring Physician(s) : Dr. 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 ID: [id number], Energy: 6X, Dose/Fx (cGy): 200, #Fx: , Dose Correction (cGy): 0, Total Dose Delivered (cGy): 1,400, Start Date: 06/01/2025, Elapsed Days: 13 Reason for visit: The patient is being seen today as part of their regularly scheduled weekly on treatment visits to assess for acute toxicities from radiotherapy. Review of Systems: Pt is quite sore from PEG placement Vital Signs: Performed on 06/14/2025 11:21 AM BMI - 21.058 kg/m2, Height - 69 in, Weight - 142.6 lbs, Temperature - 69.7 f, Pulse - 72 /min, Respiration - 18 /min, O2 Sat - 96 %, Pain - 5, Fatigue - 0 and BP - 119/ 76 mm(hg). Physical Exam: Imaging: Radiation therapy imaging related to accurate target localization (i.e. KV, MV and CBCT) was reviewed. Appropriate changes, if any, were made to ensure treatment accuracy. Plan: Continue treatments as planned Signed by: Dr. Ro Malave 06/14/2025 1:12:53 PM
[2025-06-15 08:22] LABS: Hematocrit 39.7 % (36-47); Hemoglobin 12.80 g/dL (11.27-16.99); Mean Corpuscular HGB Conc 32.2 g/dL (30-55); Mean Corpuscular Hemoglobin 32.3 pg (27-33); Mean Corpuscular Volume 100.3 fl (85-98); Nucleated Red Blood Cells % 0 %; Platelet Count 191 10^3/cmm (157-399); Red Blood Count 3.96 10^6/uL (3.85-5.65); White Blood Count 15.63 10^3/uL (3.29-11.43)
[2025-06-15 08:43] LABS: Alanine Aminotransferase 22 U/L (0-33); Albumin Level 3.5 g/dL (3.5-5.2); Alkaline Phosphatase 80 U/L (35-105); Anion Gap 17.8 (5-19); Aspartate Amino Transferase 19 U/L (0-32); Blood Urea Nitrogen 7 mg/dL (6-20); Calcium 9.0 mg/dL (8.5-10.5); Carbon Dioxide 23 mmol/L (22-29); Chloride 98 mmol/L (98-107); Globulin 3.4 g/dL (1.3-4.6); Glucose 96 mg/dL (65-115); Magnesium 1.5 mg/dL (1.7-2.3); Osmolality Calculated 278 mOsm/kg (285-295); Potassium 3.8 mmol/L (3.5-5.1); Sodium 135 mmol/L (136-145); Total Protein 6.9 g/dL (6.6-8.7)
[2025-06-15 09:21] LABS: Slide Review Slide Review Perform
[2025-06-15] MEDS: morphine 4 mg/mL SDV 1 mL 1.5 MG IVP (09:44)
[2025-06-15] MEDS: sodium chlor 0.9% + KCl 20 mEq 20 MEQ/1,000 ML BAG 500 MEQ IV (10:18)
[2025-06-15] MEDS: magnesium sulfate premix 2 GM/50 ML PIGGYBACK IV (10:18)
[2025-06-15] MEDS: diphenhydrAMINE 50 mg/mL SDV 1mL 25 MG IVP (11:24)
--- NOTE | 2025-06-15 11:42 | PC.NUTR ---
Addendum entered and electronically signed by Sharla Miranda 06/15/25 12:16: In order to prevent weight loss, recommend total of 5 cartons Jevity 1.5 per day. Discussed with Tiffanie that she can add 1/2 carton to the noon and 8pm feeds, or add the extra carton to the 8pm feed. Original Note: Received phone consult today for PEG tube feeding recommendations. Recommend bolus feeds with Jevity 1.5, total of 4 cartons/day. Days 1 and 2 1/2 carton (120mls) given at 8am/noon/4pm/8pm. FWF of 60mls before and after bolus. If tolerated, on Day 3 increase 1 carton (237mls) given at 8am/noon/4pm/8pm. FWF of 60mls before and after bolus. If weight loss 1-5lbs or Pt is hungry, recommend additional carton of Jevity 1.5 @8pm.
[2025-06-15] MEDS: FUROsemide 10 mg/mL SDV 2mL 20 MG IVP (13:48)
[2025-06-15 14:30] VITALS: BP 109/67; PULSE 81; RESP 16; TEMP 36.6; O2SAT 99
--- NOTE | 2025-06-21 11:51 | ONCRAD TMN_ITS ---
Radiation Oncology Weekly Treatment Management Patient: Tiffanie Juárez MR#: [id number] : 1980 Attending Physician: Dr. Ro Malave Date of Service: 06/21/2025 Referring Physician(s) : Dr. 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 ID: [id number], Energy: 6X, Dose/Fx (cGy): 200, #Fx: , Dose Correction (cGy): 0, Total Dose Delivered (cGy): 2,400, Start Date: 06/01/2025, End Date: 06/21/2025, Elapsed Days: 20 Reason for visit: The patient is being seen today as part of their regularly scheduled weekly on treatment visits to assess for acute toxicities from radiotherapy. Review of Systems: Pt is feeling better after having a BM this weekend. She has noticed her taste is off. Vital Signs: Performed on 06/21/2025 11:18 AM BMI - 20.468 kg/m2, Height - 69 in, Weight - 138.6 lbs, Temperature - 97 f, Pulse - 76 /min, Respiration - 18 /min, O2 Sat - 97 %, Pain - 5, Fatigue - 0 and BP - 110/ 73 mm(hg). Physical Exam: Skin and oral cavity without changes. Imaging: Radiation therapy imaging related to accurate target localization (i.e. KV, MV and CBCT) was reviewed. Appropriate changes, if any, were made to ensure treatment accuracy. Plan: Chemo tomorrow, continue treatments as planned Signed by: Dr. Ro Malave 06/21/2025 11:50:07 AM
[2025-06-22 08:38] LABS: Hematocrit 36.3 % (36-47); Hemoglobin 12.10 g/dL (11.27-16.99); Mean Corpuscular HGB Conc 33.3 g/dL (30-55); Mean Corpuscular Hemoglobin 31.8 pg (27-33); Mean Corpuscular Volume 95.5 fl (85-98); Nucleated Red Blood Cells % 0 %; Platelet Count 247 10^3/cmm (157-399); Red Blood Count 3.80 10^6/uL (3.85-5.65); White Blood Count 7.14 10^3/uL (3.29-11.43)
[2025-06-22 09:00] LABS: Alanine Aminotransferase 12 U/L (0-33); Albumin Level 3.2 g/dL (3.5-5.2); Alkaline Phosphatase 90 U/L (35-105); Anion Gap 13.5 (5-19); Aspartate Amino Transferase 15 U/L (0-32); Blood Urea Nitrogen 13 mg/dL (6-20); Calcium 9.0 mg/dL (8.5-10.5); Carbon Dioxide 30 mmol/L (22-29); Chloride 100 mmol/L (98-107); Globulin 3.5 g/dL (1.3-4.6); Glucose 104 mg/dL (65-115); Magnesium 1.4 mg/dL (1.7-2.3); Osmolality Calculated 290 mOsm/kg (285-295); Potassium 3.5 mmol/L (3.5-5.1); Sodium 140 mmol/L (136-145); Total Protein 6.7 g/dL (6.6-8.7)
[2025-06-22] MEDS: sodium chlor 0.9% + KCl 20 mEq 20 MEQ/1,000 ML BAG 500 MEQ IV (09:00)
[2025-06-22] MEDS: magnesium sulfate premix 2 GM/50 ML PIGGYBACK IV (09:00)
[2025-06-22] MEDS: diphenhydrAMINE 50 mg/mL SDV 1mL 25 MG IVP (11:01)
[2025-06-22] MEDS: FUROsemide 10 mg/mL SDV 2mL 20 MG IVP (13:11)
[2025-06-22 14:45] VITALS: BP 109/70; PULSE 80; RESP 17; TEMP 36.7; O2SAT 93
== END 2025-06-27 23:59 | disposition home or self-care (01) ==
PROVIDERS: Nurse Practitioner; Visit Provider Radiology Radiation Oncology
DX: Z51.0 Encounter for antineoplastic radiation therapy (principal); C32.1 Malignant neoplasm of supraglottis; C04.8 Malignant neoplasm of overlapping sites of floor of mouth; C77.0 Secondary and unspecified malignant neoplasm of lymph nodes of head, face and neck
CPT/HCPCS: 77336; 77386; 80053; 83615; 83735; 84100; 85025; 96367; 96368; 96375; 96413; J0185; J1100; J1200; J1938; J2270; J2469; J3475; J3480; J3490; J7040; J7050; J9060; J9999

== ENCOUNTER 2025-07-13 07:45 | Oncology outpatient (recurring) (ONCR) | payer SELFPAY ==
--- NOTE | 2025-06-28 12:10 | ONCRAD TMN_ITS ---
Radiation Oncology Weekly Treatment Management Patient: Franck Louise MR#: [id number] : 1980> Attending Physician: Patricio Stewart Date of Service: 06/28/2025 Referring Physician(s) : Dr. 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 ID: [id number], Energy: 6X, Dose/Fx (cGy): 200, #Fx: 17 / 35, Dose Correction (cGy): 0, Total Dose Delivered (cGy): 3,400, Start Date: 06/01/2025, Elapsed Days: 27 Reason for visit: The patient is being seen today as part of their regularly scheduled weekly on treatment visits to assess for acute toxicities from radiotherapy. Review of Systems: Patient losing approximately 5 pounds per week since starting treatment. No one is really educator to her in the process of the feeding tube mechanics. She has to do slow and steady flow. She should not have 50 to 75 cc an hour at max. She is going to check back with us toward the end of the week Vital Signs: Performed on 06/28/2025 10:37 AM BMI - 19.759 kg/m2, Height - 69 in, Weight - 133.8 lbs, Temperature - 97.1 f, Pulse - 81 /min, Respiration - 18 /min, O2 Sat - 96 %, Pain - 3, Fatigue - 0 and BP - 98/ 65 mm(hg). Physical Exam: AAOx3. Skin intact Imaging: Radiation therapy imaging related to accurate target localization (i.e. KV, MV and CBCT) was reviewed. Appropriate changes, if any, were made to ensure treatment accuracy. Plan: Continue XRT Slowly deliberate tube feedings to work up to 50 to 75 cc/h. Carton of supplement is 500 edilberto per carton. Signed by: Patricio Stewart 06/28/2025 12:08:48 PM
[2025-06-29 08:03] LABS: Hematocrit 35.4 % (36-47); Hemoglobin 11.70 g/dL (11.27-16.99); Mean Corpuscular HGB Conc 33.1 g/dL (30-55); Mean Corpuscular Hemoglobin 31.7 pg (27-33); Mean Corpuscular Volume 95.9 fl (85-98); Nucleated Red Blood Cells % 0 %; Platelet Count 263 10^3/cmm (157-399); Red Blood Count 3.69 10^6/uL (3.85-5.65); White Blood Count 6.06 10^3/uL (3.29-11.43)
[2025-06-29 08:26] LABS: Alanine Aminotransferase 19 U/L (0-33); Albumin Level 3.2 g/dL (3.5-5.2); Alkaline Phosphatase 106 U/L (35-105); Anion Gap 13.0 (5-19); Aspartate Amino Transferase 26 U/L (0-32); Blood Urea Nitrogen 22 mg/dL (6-20); Calcium 9.2 mg/dL (8.5-10.5); Carbon Dioxide 30 mmol/L (22-29); Chloride 101 mmol/L (98-107); Globulin 3.5 g/dL (1.3-4.6); Glucose 131 mg/dL (65-115); Osmolality Calculated 295 mOsm/kg (285-295); Potassium 4.0 mmol/L (3.5-5.1); Sodium 140 mmol/L (136-145); Total Protein 6.7 g/dL (6.6-8.7)
[2025-06-29 09:21] VITALS: BP 107/75; PULSE 92; RESP 16; TEMP 37.1; O2SAT 97
[2025-06-29 09:23] LABS: Magnesium 1.5 mg/dL (1.7-2.3)
[2025-06-29] MEDS: sodium chlor 0.9% + KCl 20 mEq 20 MEQ/1,000 ML BAG 500 MEQ IV (09:23)
[2025-06-29] MEDS: magnesium sulfate premix 2 GM/50 ML PIGGYBACK IV (09:24)
[2025-06-29] MEDS: diphenhydrAMINE 50 mg/mL SDV 1mL 25 MG IVP (10:31)
[2025-06-29] MEDS: FUROsemide 10 mg/mL SDV 2mL 20 MG IVP (12:18)
[2025-06-29 13:59] VITALS: BP 103/65; PULSE 76; RESP 16; TEMP 37.2; O2SAT 97
[2025-06-30 11:41] VITALS: BP 96/63; PULSE 75; RESP 16; TEMP 37; O2SAT 97
[2025-06-30 12:12] LABS: Blood Urea Nitrogen 25 mg/dL (6-20)
[2025-06-30 13:35] VITALS: BP 115/77; PULSE 80; RESP 16; TEMP 37; O2SAT 96
[2025-07-01 10:10] LABS: Blood Urea Nitrogen 19 mg/dL (6-20)
[2025-07-05 11:38] LABS: Hematocrit 33.5 % (36-47); Hemoglobin 11.20 g/dL (11.27-16.99); Mean Corpuscular HGB Conc 33.4 g/dL (30-55); Mean Corpuscular Hemoglobin 31.9 pg (27-33); Mean Corpuscular Volume 95.4 fl (85-98); Nucleated Red Blood Cells % 0 %; Platelet Count 183 10^3/cmm (157-399); Red Blood Count 3.51 10^6/uL (3.85-5.65); White Blood Count 4.72 10^3/uL (3.29-11.43)
[2025-07-05 11:59] LABS: Alanine Aminotransferase 24 U/L (0-33); Albumin Level 3.4 g/dL (3.5-5.2); Alkaline Phosphatase 105 U/L (35-105); Anion Gap 15.5 (5-19); Aspartate Amino Transferase 25 U/L (0-32); Blood Urea Nitrogen 25 mg/dL (6-20); Calcium 8.8 mg/dL (8.5-10.5); Carbon Dioxide 27 mmol/L (22-29); Chloride 100 mmol/L (98-107); Globulin 3.0 g/dL (1.3-4.6); Glucose 120 mg/dL (65-115); Magnesium 1.4 mg/dL (1.7-2.3); Osmolality Calculated 292 mOsm/kg (285-295); Potassium 4.5 mmol/L (3.5-5.1); Sodium 138 mmol/L (136-145); Total Protein 6.4 g/dL (6.6-8.7)
--- NOTE | 2025-07-05 13:12 | ONCRAD TMN_ITS ---
Radiation Oncology Weekly Treatment Management Patient: Tiffanie Juárez MR#: [id number] : 1980 Attending Physician: Patricio Stewart Date of Service: 07/05/2025 Referring Physician(s) : Dr. 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 ID: [id number], Energy: 6X, Dose/Fx (cGy): 200, #Fx: , Dose Correction (cGy): 0, Total Dose Delivered (cGy): 4,400, Start Date: 06/01/2025, Elapsed Days: 34 Reason for visit: The patient is being seen today as part of their regularly scheduled weekly on treatment visits to assess for acute toxicities from radiotherapy. Review of Systems: Patient has adjusted her feedings where she does around 125 cc/h via gravity feeds. She was sent home with only tubing that would work with a pump system. We will check to see if there is gravity feed tubing available here in the department. She is maintained her weight. Her labs of last week were adequate for chemo and she is due for chemo again tomorrow Zeigler Mesha. She had her labs drawn today. Vital Signs: Performed on 07/05/2025 7:58 AM BMI - 19.788 kg/m2, Height - 69 in, Weight - 134 lbs, Temperature - 97.2 f, Pulse - 84 /min, Respiration - 17 /min, O2 Sat - 97 %, Pain - 0, Fatigue - 0 and BP - 107/ 69 mm(hg). Physical Exam: AAO x 3. Skin intac.t No oral cavity mucositis noted Imaging: Radiation therapy imaging related to accurate target localization (i.e. KV, MV and CBCT) was reviewed. Appropriate changes, if any, were made to ensure treatment accuracy. Plan: Continue XRT Chemotherapy tomorrow Continue gravity feeds for adequate calorie intake. Signed by: Patricio Stewart 07/05/2025 1:11:11 PM
[2025-07-06] MEDS: sodium chlor 0.9% + KCl 20 mEq 20 MEQ/1,000 ML BAG 999 MEQ IV (07:37)
[2025-07-06] MEDS: magnesium sulfate premix 2 GM/50 ML PIGGYBACK IV ×2 (07:49→09:06)
[2025-07-06 08:46] VITALS: BP 101/63; PULSE 76; RESP 18; TEMP 36.4; O2SAT 97
[2025-07-06] MEDS: diphenhydrAMINE 50 mg/mL SDV 1mL 25 MG IVP (10:07)
[2025-07-06] MEDS: FUROsemide 10 mg/mL SDV 2mL 20 MG IVP (11:56)
[2025-07-06 12:50] VITALS: BP 96/60; PULSE 74; RESP 17; TEMP 36.4; O2SAT 97
--- NOTE | 2025-07-12 11:44 | ONCRAD TMN_ITS ---
Radiation Oncology Weekly Treatment Management Patient: Tiffanie Juárez MR#: [id number] : 1980 Attending Physician: Patricio Stewart Date of Service: 07/12/2025 Referring Physician(s) : Dr. 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 ID: [id number], Energy: 6X, Dose/Fx (cGy): 200, #Fx: 25 / 35, Dose Correction (cGy): 0, Total Dose Delivered (cGy): 5,000, Start Date: 06/01/2025, End Date: 07/12/2025, Elapsed Days: 41 Reason for visit: The patient is being seen today as part of their regularly scheduled weekly on treatment visits to assess for acute toxicities from radiotherapy. Review of Systems: Patient gained 1 pound since last week. She is due for chemotherapy tomorrow. She is set 25 of 35 fractions. She notes no pain at this time. Feedings at home have no problems or restrictions other than it takes a large amount of her day to accomplish this. Patient understands that we will not routinely image until approximately 3 months after completion of treatment. Vital Signs: Performed on 07/12/2025 11:26 AM BMI - 19.966 kg/m2, Height - 69 in, Weight - 135.2 lbs, Temperature - 96.9 f, Pulse - 77 /min, Respiration - 17 /min, O2 Sat - 99 %, Pain - 0, Fatigue - 0 and BP - 105/ 69 mm(hg). Physical Exam: AAO x 3. Skin intact. No hoarseness noted. Imaging: Radiation therapy imaging related to accurate target localization (i.e. KV, MV and CBCT) was reviewed. Appropriate changes, if any, were made to ensure treatment accuracy. Plan: Continue XRT Chemotherapy tomorrow Have her see me in follow-up will last week I am here in July. Signed by: Patricio Stewart 07/12/2025 11:43:53 AM
[2025-07-13 08:08] LABS: Hematocrit 29.4 % (36-47); Hemoglobin 10.20 g/dL (11.27-16.99); Mean Corpuscular HGB Conc 34.7 g/dL (30-55); Mean Corpuscular Hemoglobin 32.1 pg (27-33); Mean Corpuscular Volume 92.5 fl (85-98); Nucleated Red Blood Cells % 0 %; Platelet Count 118 10^3/cmm (157-399); Red Blood Count 3.18 10^6/uL (3.85-5.65); White Blood Count 3.79 10^3/uL (3.29-11.43)
[2025-07-13] MEDS: magnesium sulfate premix 2 GM/50 ML PIGGYBACK IV (08:12)
[2025-07-13] MEDS: sodium chlor 0.9% + KCl 20 mEq 20 MEQ/1,000 ML BAG 500 MEQ IV (08:12)
[2025-07-13 08:26] LABS: Alanine Aminotransferase 19 U/L (0-33); Albumin Level 3.4 g/dL (3.5-5.2); Alkaline Phosphatase 96 U/L (35-105); Anion Gap 13.4 (5-19); Aspartate Amino Transferase 23 U/L (0-32); Blood Urea Nitrogen 22 mg/dL (6-20); Calcium 9.2 mg/dL (8.5-10.5); Carbon Dioxide 28 mmol/L (22-29); Chloride 99 mmol/L (98-107); Globulin 3.2 g/dL (1.3-4.6); Glucose 114 mg/dL (65-115); Magnesium 1.6 mg/dL (1.7-2.3); Osmolality Calculated 286 mOsm/kg (285-295); Potassium 4.4 mmol/L (3.5-5.1); Sodium 136 mmol/L (136-145); Total Protein 6.6 g/dL (6.6-8.7)
[2025-07-13] MEDS: diphenhydrAMINE 50 mg/mL SDV 1mL 25 MG IVP (10:32)
[2025-07-13] MEDS: FUROsemide 10 mg/mL SDV 2mL 20 MG IVP (12:20)
[2025-07-13 13:32] VITALS: BP 102/61; PULSE 76; TEMP 36.9
== END 2025-07-13 23:59 | disposition home or self-care (01) ==
PROVIDERS: Nurse Practitioner; Radiology Radiation Oncology; Visit Provider Internal Medicine
DX: Z53.9 Procedure and treatment not carried out, unspecified reason; Z51.11 Encounter for antineoplastic chemotherapy; Z51.0 Encounter for antineoplastic radiation therapy; C32.1 Malignant neoplasm of supraglottis; C04.8 Malignant neoplasm of overlapping sites of floor of mouth; C77.0 Secondary and unspecified malignant neoplasm of lymph nodes of head, face and neck; Z79.630 Long term (current) use of alkylating agent
CPT/HCPCS: 36591; 77336; 77386; 80053; 82565; 83615; 83735; 84520; 85025; 96360; 96367; 96368; 96375; 96413; J0185; J1100; J1200; J1938; J2469; J3475; J3480; J3490; J7030; J7040; J7050; J9060; J9999